=== PATIENT | male | born 1970 | race Caucasian/White ===

== ENCOUNTER 2016-06-13 08:12 | Day surgery (SDC) | payer OTHER ==
[~2016-06-13 08:12] MED LIST: DIPRIVAN 200 MG/20 ML IV ONE; Ketamine HCl 50 MG/ML IJ ONE
--- NOTE | 2016-06-13 08:18 | HP ---
The patient is a 45 year-old, had some bright blood bowel movements over the past 5 years, worse recently over the past few weeks. He had a colonoscopy for diarrhea 6 or 7 years ago, it was negative according to the patient. FAMILY HISTORY: An uncle with some sort of bowel cancer, whether it was colon or not, he is not sure. The patient denies any fever or any abdominal pain currently. He has a history of PE, DVT, in the past. History of staph infections in the past. He was on Xarelto but he held his Xarelto since he had the bleeding episode. PAST MEDICAL HISTORY: As mentioned above. MEDICATIONS: Xarelto, which he had held since the bleeding episode. Other history of being on Tylenol and Viagra in the past. Otherwise, he denied any chronic illnesses other than as noted above. PAST SURGICAL HISTORY: He had elbow surgery in the past. He had patellar tendon debridement and arthroscopy 07/03/2015. FAMILY HISTORY: Arthritis, diabetes. SOCIAL HISTORY: Half a pack a day smoker. Denies alcohol abuse. ALLERGIES: Amoxicillin. REVIEW OF SYSTEMS: Again, pertinent for he had a pulmonary embolus 3 weeks after his knee surgery back in June,. Otherwise, no chest pains or palpitations. Other symptoms negative or noncontributory as noted above per pre-admission questionnaire. PHYSICAL EXAMINATION: GENERAL: No acute distress. HEENT: Sclerae nonicteric. NECK: No JVD. CHEST: Normal excursions CARDIOVASCULAR: Regular rate and rhythm. ABDOMEN: Soft, nontender, nondistended. No peritoneal signs. EXTREMITIES: No significant edema. NEUROLOGICAL: Alert, moving extremities grossly symmetrically, no gross motor deficits noted. RECTAL: Deferred to time of endoscopy exam. Patient has had reported history of some question of some hemorrhoid issues in the past as well. IMPRESSION: Rectal bleeding. He has had a history of Xarelto use for PE and DVT in the past. Otherwise, at this time he has held. It was felt he would benefit from colonoscopy for evaluation, rule out other etiology. He is interested as he does have some hemorrhoid disease. If finding any other obvious etiology or if hemorrhoids seem to be the etiology, then consider possible internal hemorrhoid banding at the time of the procedure. Therefore, we will proceed with colonoscopy, possible internal hemorrhoid banding as an outpatient. The risks and benefits explained in detail, not limited to bleeding, infection, small risk of bowel injury or perforation possibly requiring other procedures, small risk of missed or non diagnosis or incomplete exam possibly requiring barium enema or other procedures. General risk of anesthesia or sedation, risk of bowel prep, postoperative nausea, vomiting or cramping, but not limited to. He also understands should his internal hemorrhoids be prominent enough to consider internal hemorrhoid banding, general risk of bleeding, infection, small risk of deep or pelvic infection possibly requiring major operation. General risk of anesthesia, DVT, PE, pneumonia. He also understands possibility, even with banding, he could have progression of hemorrhoid disease and might require other treatments and/or even excision down the road. General risk of aches and pains but not limited to. He understands and agrees with plan of procedure. We will proceed with colonoscopy, possible internal hemorrhoid banding as an outpatient.
[2016-06-13] MEDS ORDERED: Lactated Ringers 1,000 ML IV ONE ×2 (08:24→09:15)
[2016-06-13] MEDS ORDERED: Lactated Ringers 1,000 ML IV SCH (08:30)
[2016-06-13] MEDS ORDERED: ANUSOL-HC 2.5% CREAM 30 GM ONE (09:16)
[2016-06-13 12:05] VITALS: BP 134/68; PULSE 76; O2SAT 98
--- NOTE | 2016-06-14 08:37 | OP ---
SURGERY DATE/TIME: 06/13/2016 1020 PREOPERATIVE DIAGNOSES: 1) History of rectal bleeding. 2) Poor bowel prep limiting the exam. 3) Rectal mass at about 5 to 6 cm from anal verge. 4) Small rectosigmoid colon polyps versus hyperplastic lesions, small raised lesion ascending colon. 5) Diverticulosis. 6) Internal and external hemorrhoids. 7) Poor bowel prep limiting the exam. POSTOPERATIVE DIAGNOSES: 1) History of rectal bleeding. 2) Poor bowel prep limiting the exam. 3) Rectal mass at about 5 to 6 cm from anal verge. 4) Small rectosigmoid colon polyps versus hyperplastic lesions, small raised lesion ascending colon. 5) Diverticulosis. 6) Internal and external hemorrhoids. 7) Poor bowel prep limiting the exam. PROCEDURES: 1) Colonoscopy to terminal ileum with retrograde ileoscopy. 2) Retrograde ileoscopy. 3) Hot biopsy small raised lesion initially and then removed with the hot snare and brief bursts of cautery. 4) Hot snare polypectomy small rectosigmoid colon polyp x2. 5) Hot biopsy small raised lesion versus hyperplastic lesion versus early polyps rectosigmoid colon x2 or 3. 6) Hot snare biopsy of large 3 cm rectal polypoid mass at about 5 to 6 cm above the anal verge right at the lower fold, multiple large biopsies taken with hot snare with ink spot tattooing of the location. SURGEON: Dr. Andriy Heller. ANESTHESIA: MAC. ESTIMATED BLOOD LOSS: Minimal. INDICATIONS: As noted above. Risks and benefits explained in detail but not limited to and consent obtained. DESCRIPTION OF PROCEDURE AND FINDINGS: The patient is taken to the operating room. MAC anesthesia induced. After official time out and no disagreement with planned procedure, digital rectal exam revealed some internal and external hemorrhoids, tip of the polypoid lesion at the very tip of the finger. Video colonoscope inserted and passed up through the poorly prepped colon. Slowly and carefully the tortuous colon down the transverse colon, ascending colon to the cecum and up the terminal ileum. Retrograde ileoscopy is accomplished. The ileum was grossly unremarkable. The scope is withdrawn. Again the prep was poor limiting the exam for potentially small lesions. There is a small 3 mm raised lesion versus early polyp on a fold on the ascending colon this was initially planned to biopsy but it looked like it was easier to snare so it was removed with hot snare with brief bursts of cautery. Good hemostasis noted. The staff said the polyp/raised lesion was retrieved. The scope is slowly and carefully withdrawn through the poorly prepped colon. He did have some diverticulosis. The scope pulled back to the rectosigmoid colon where a couple small polyps removed with hot snare. Whether these were hyperplastic or adenomatous was unclear. They were removed with hot snare with brief bursts of cautery elevating well away from bowel wall. There were two to three other small raised lesions whether hyperplastic versus early true polyp removed with hot biopsy with brief bursts of cautery elevating well away from the bowel wall. About 5 to 6 cm up from the anal verge right at the lower fold it was noted a polypoid mass this had two broad of base to safely remove in toto with a snare. A couple large pieces were taken off with the snare and appeared to have some brief ooze but appeared to have adequate hemostasis. These were sent for biopsy. Otherwise spot was marked with a couple ink spot tattooing with some at distal edge with the ink spot tattoo. Otherwise he did have some internal and external hemorrhoids but banding was not accomplished on this visit as it was felt that his polypoid mass would need surgical intervention. Therefore any hemorrhoid banding was aborted at this juncture. The patient tolerated the procedure well. There were no immediate complications. Findings discussed with the family out in the waiting area. We will see him back in the office to go over the path next week and discuss options.
== END 2016-06-13 12:10 | disposition home or self-care (01) ==
LOC: SDC 08:12
PROVIDERS: ATTEND Surgery
PROC: 0DJD8ZZ Inspection of Lower Intestinal Tract, Via Natural or Artificial Opening Endoscopic (ICD-10-PCS; principal; 2016-06-13)
PROC: 0DJD8ZZ Inspection of Lower Intestinal Tract, Via Natural or Artificial Opening Endoscopic (ICD-10-PCS; 2016-06-13)
PROC: 0DBK8ZX Excision of Ascending Colon, Via Natural or Artificial Opening Endoscopic, Diagnostic (ICD-10-PCS; 2016-06-13)
PROC: 0DBP8ZX Excision of Rectum, Via Natural or Artificial Opening Endoscopic, Diagnostic (ICD-10-PCS; 2016-06-13)
PROC: 0DBN8ZX Excision of Sigmoid Colon, Via Natural or Artificial Opening Endoscopic, Diagnostic (ICD-10-PCS; 2016-06-13)
PROC: 3E0H8GC Introduction of Other Therapeutic Substance into Lower GI, Via Natural or Artificial Opening Endoscopic (ICD-10-PCS; 2016-06-13)
DX: K62.89 Other specified diseases of anus and rectum (principal); K62.1 Rectal polyp; K62.5 Hemorrhage of anus and rectum; K63.9 Disease of intestine, unspecified; K57.90 Diverticulosis of intestine, part unspecified, without perforation or abscess without bleeding; K64.4 Residual hemorrhoidal skin tags; K64.8 Other hemorrhoids
CPT/HCPCS: 00810; 36415; 88305; J2704

== ENCOUNTER 2016-06-20 09:09 | Inpatient (IN) | payer OTHER ==
[2016-08-08] MEDS ORDERED: DIPRIVAN 200 MG/20 ML IV ONE (08:00)
[2016-08-08] MEDS ORDERED: XYLOCAINE 2%/Epi 1:200000 20ML VIAL MPF IJ ONE (08:00)
[2016-08-08] MEDS ORDERED: SUBLIMAZE 100 MCG/2 ML IV ONE (08:00)
[2016-08-08] MEDS ORDERED: Decadron 4 MG INJ IV ONE (08:00)
[2016-08-08] MEDS ORDERED: BRIDION 200MG/2ML IV ONE (08:00)
[2016-08-08] MEDS ORDERED: BREVIBLOC 100 MG/10 ML IV ONE (08:00)
[2016-08-08] MEDS ORDERED: Zemuron 100 MG/10 ML IJ ONE (08:00)
[2016-08-08] MEDS ORDERED: DILAUDID 2 MG INJECTION IV ONE (08:00)
[2016-08-08] MEDS ORDERED: Quelicin Fliptop 200 MG/10 ML IV ONE (08:00)
[2016-08-08] MEDS ORDERED: PHENYLEPHRINE HCL IV ONE (08:00)
[2016-08-08] MEDS ORDERED: VERSED 5 MG/5 ML IV ONE (08:00)
[2016-08-08] MEDS ORDERED: Zofran 4 MG/2 ML VIAL IV ONE (08:00)
[2016-08-08] MEDS ORDERED: TORAdol 30 mg Injection IV ONE (08:00)
--- NOTE | 2016-08-08 08:21 | HP ---
DATE OF SURGERY: 08/08/2016 HISTORY OF PRESENT ILLNESS: The patient is a 45 year-old gentleman had rectal bleeding, had been on Xarelto in the past. He stopped taking it. He had a colonoscopy six or seven years ago negative according to the patient. He had blood in the bowel movements over the past five years. History of pulmonary embolism and deep venous thrombosis in the past. He had Staph infection in the past. He had been on Xarelto. MEDICATIONS: He had been on Xarelto but he had stopped it. ALLERGIES: AMOXICILLIN. PAST SURGICAL HISTORY: He had knee surgery in the past. He had pulmonary embolism three weeks after that surgery. FAMILY HISTORY: Uncle with some sort of bowel cancer whether colon or not is unknown. Arthritis and diabetes. SOCIAL HISTORY: One and a half pack per day smoker. He does drink some alcohol, denies abuse. REVIEW OF SYSTEMS: Twelve systems reviewed pertinent for history of pulmonary embolism in the past and deep venous thrombosis after a knee surgery. Otherwise he had a recent colonoscopy and had a very low rectal mass only 6 or 7 cm from the anal verge. 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 [place] it was too large to remove safely endoscopically. I felt that he would benefit from surgical resection. PHYSICAL EXAMINATION: GENERAL: No acute distress. HEENT: Sclerae nonicteric. NECK: No JVD. CHEST: Equal excursion, nonlabored breathing. CVS: Regular rate and rhythm. ABDOMEN: Soft, nontender. No peritoneal signs. EXTREMITIES: No significant edema. NEURO: Alert, oriented, moving extremities symmetrically. No gross motor deficits noted. RECTAL: Irregular tubulovillous adenoma. Again just barely can tip of it with a finger. 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 I feel he would benefit from surgical resection likely low anterior approach. He was explained that this is quite a low lesion and may not be that easy but plan on laparoscopic associated low anterior resection possibly open, possible hand-assist, possibly ostomy temporary or longer term. He was explained the risks and benefits explained in detail including but not limited to bleeding or infection, risk of wound complication, hernia, dehiscence,, risk of bowel, bladder, blood vessel of ureter or bladder issues or injury possibly requiring other procedures, risk of nerve, scar formation, or irritation, risk of bowel, bladder or even erectile dysfunction, general risk of anesthesia, deep venous thrombosis, pulmonary embolism, pneumonia, risk of ileus, risk of adhesions or obstruction, risk of anastomotic complications, leak or dehiscence possibly requiring ostomy, general risk of anesthesia, deep venous thrombosis, pulmonary embolism, pneumonia, perioperative risk of aches, pains, but not limited to. He also understands options of doing nothing likely this mass will continue to grow and if there is no carcinoma in it now likely will be in the near future. Otherwise general risk of aches and pains but not limited to. He understands this is quite low. There is possibility may be reanastomosis but might require temporary ileostomy or diversion ostomy. He understands all the above and agrees to the planned procedure and will proceed with laparoscopic assisted low anterior resection possible hand-assist, possible open, possible ostomy depending on operative findings.
[2016-08-08] MEDS: ENTEREG 12 MG PO SCH ×2 (10:26→21:54)
[2016-08-08] MEDS ORDERED: MEFOXIN 2 GM PREMIX** 50 ML IV ONE ×2 (10:29→10:49)
[2016-08-08] MEDS ORDERED: Lactated Ringers 1,000 ML IV SCH (10:30)
[2016-08-08] MEDS ORDERED: Versed 2 MG/2 ML Injection IV ONE (10:49)
[2016-08-08] MEDS ORDERED: Lactated Ringers 1,000 ML IV ONE ×4 (12:09→16:09)
[2016-08-08] MEDS ORDERED: Sensorcaine 0.25% 10 ML ONE (12:09)
[2016-08-08] MEDS ORDERED: EPIDURAL - ROPIVICAINE0.5%/SUFENTA 250 MCG/NS EPIDURAL PRN (16:24)
[2016-08-08] MEDS ORDERED: DILAUDID 1 MG/1ML PCA IV PRN (17:43)
[2016-08-08] MEDS ORDERED: Zofran 4 MG/2 ML VIAL IV PRN (17:44)
[2016-08-08] MEDS ORDERED: TYLENOL 325 MG PO PRN (17:46)
[2016-08-08] MEDS: D5W/0.45NS W/ 20mEq KCl 1000 ML 1,000 ML IV SCH (17:46)
[2016-08-08] MEDS ORDERED: NORCO 5/325 MG PO PRN (17:46)
[2016-08-08] MEDS ORDERED: Narcan 0.4 MG/ML IV PRN (17:48)
[2016-08-08] MEDS ORDERED: PERCOCET TABLET 5/325MG PO PRN (17:48)
[2016-08-08] MEDS ORDERED: CLARITIN 10 MG PO PRN (17:48)
[2016-08-08] MEDS ORDERED: NALBUPHINE HCL 10 MG/1 ML INJECTION IV PRN (17:48)
[2016-08-08] MEDS ORDERED: MORPHINE SULFATE 2 MG INJ IV PRN (17:48)
[2016-08-08] MEDS: MEFOXIN 1 Gm/ D5W 50 Ml** 50 ML IV SCH ×2 (18:05→23:50)
[2016-08-08] MEDS: Nicoderm CQ 21 MG TOP SCH (21:53)
[2016-08-09] MEDS: D5W/0.45NS W/ 20mEq KCl 1000 ML 1,000 ML IV SCH ×2 (03:59→14:52)
[2016-08-09] MEDS: MEFOXIN 1 Gm/ D5W 50 Ml** 50 ML IV SCH (05:47)
[2016-08-09 05:52] LABS: Mean Cell Volume 95.7 fl (78-100); Mean Corpuscular Hemoglobin 32.2 pg (26-32); Mean Platelet Volume 8.6 fl (6-9.5); Platelet Count 216 K/mm3 (150-450); Red Blood Count 3.97 M/mm3 (4.1-5.6); White Blood Count 13.1 K/mm3 (4.0-10.5)
[2016-08-09 06:01] LABS: ANION GAP 12.8 MEQ/L (5-15); BLOOD UREA NITROGEN 9 mg/dL (9-20); CHLORIDE 106 mEq/L (98-107); Carbon Dioxide 25.9 mEq/L (21-32); Glucose 128 MG/DL (70-110); Potassium 4.2 mEq/L (3.5-5.1); SODIUM 141 mEq/L (136-145)
--- NOTE | 2016-08-09 08:14 | OP ---
SURGERY DATE/TIME: 08/08/2016 1158 PREOPERATIVE DIAGNOSIS: Large polypoid mass tubulovillous adenoma by endoscopy biopsy not safely resectable endoscopically. POSTOPERATIVE DIAGNOSIS: Large polypoid mass tubulovillous adenoma by endoscopy biopsy not safely resectable endoscopically. PROCEDURES: 1) Laparoscopic assisted, hand assisted low anterior resection with primary reanastomosis. 2) Take down of splenic flexure. 3) Completion colonoscopy. SURGEON: Dr. Andriy Heller. ROCK DUST SPRAYER: Dr. Jaden Isaac. ANESTHESIA: General. ESTIMATED BLOOD LOSS: 75 to 100 cc. INDICATIONS: As noted above. Risks and benefits explained in detail but not limited to. He had a very low rectal polypoid mass that so far is tubulovillous adenoma by biopsy. There is no safe endoscopically resection. It was felt he was in need of low anterior resection. Risks and benefits explained in detail but not limited to, and consent obtained. He did not have any further questions preoperatively. He had been informed preoperatively that there is a remote chance of needing ostomy depending on how low this area was. Consent had been obtained. He also knew reanastomosis slightly higher risk of anastomotic complications but not limited to. Consent was obtained. DESCRIPTION OF PROCEDURE AND FINDINGS: The patient is taken to the operating room. General anesthesia was induced. Anesthesia applied by intrathecal. Abdomen prepped and draped in usual sterile fashion. After official time out and no disagreement with planned procedure, a low midline 7 cm incision was made. Dissection carried down. Hand port was placed. Epigastric 5 mm port was placed as well as left upper quadrant and left lower quadrant 5 mm ports. The abdomen insufflated. Careful inspection. Liver was unremarkable. He had a large amount of intra-abdominal fat. At this point the white line of [place] was incised with aide of cautery and dissection carried up to the splenic flexure. It was carefully taken down with a combination of the LigaSure and cautery retracting the splenic flexure downward this added additional length. Once this is accomplished white line of [place] extended down towards the pelvis area. At this point it was elected to go ahead and do some dissection through the hand port wound protector giving a tight, close space dissection. As this was not a cancer operation, this was tubulovillous adenoma, it was felt that it was more important to allow enough length to allow for reanastomosis rather than being concerned with taking additional lymph nodes at this time. Therefore rectum was transected with NAA stapler. Mesentery taken down, divided, ligated with a combination of clamps and Vicryl ties and LigaSure device. Left ureter is carefully protected out laterally as well as the right out laterally. Dissection is carried along the peritoneal reflection extending avascular plane posteriorly dissecting anterior staying just anterior to the rectum this took some time with a combination of Dr. Isaac providing better exposure slowly and carefully worked back and forth. Again, as this is not a cancer operation stayed in a little bit closer more distally to allow for better supply to the residual rectal stump. This took some time but again it was difficult narrow pelvis but was slowly and carefully accomplished. It was felt to be past the area in question. Once this was accomplished the contour stapler fired. Specimen is opened on the back table and appeared to be a good 3 cm distal to this polypoid mass/polyp. There appeared to be soft, viable colon distally. At this point the specimen confirmed. At this point it was elected to do end-to-end anastomosis to allow for enough length. Proximal limb was mobilized just a little bit more staying away from the visible ureter out laterally. Otherwise the stump was opened, pin was dropped in. I felt the size 29 dilator would be the most appropriate size as the rectum was a little smaller than proximal colon. It was then restapled with contour stapler and then the pin passed through just anterior to the staple line 3-0 PDS purse string was placed right at the stapler the anvil pin. Once this was accomplished the exposure was then accomplished down in the pelvis with the peritoneum and bladder flap anteriorly away from the area in question. The stapler was placed through there with a pin carefully, opened just anterior to the rectal stump staple line this was accomplished. The stapler was snapped together. It had good click. He had a large amount of fat on this large colon taking up more pelvic space but carefully retracting the peritoneum laterally away from the area in question. Stapler is slowly and carefully closed to the green zone and fired by Dr. Isaac. It was then carefully untwisted and removed. At this point the proximal colon was then pinched off and completion colonoscopy was accomplished by Dr. Isaac. There did not appear to be any evidence of any air leak at this time. Appeared to be a technically intact viable air tight anastomosis at this point. Appeared to be quite viable. There did not appear to be any issue passing an anvil in the proximal colon. It had some spasm earlier but appeared to be fine. The staple line appeared to be viable and intact. Technically excellent again tension free and good vascular supply and air tight. At this point the colon and rectum were decompressed and suctioned free and the scope removed. Copious amount of irrigation irrigating until clear. Irrigation was clear. JOBY drain placed down in the pelvis on either side without direct communication with anastomosis itself, placed to bulb suction. All sponge and instrument counts were correct. The fascia was closed with running looped 0 PDS sequentially with clean gloves and clean instruments. Subcu irrigated out. Skin stapled. As the bowel prep had been dirty elected to leave some Iodoform enriqueta 1/4 inch was left in the staple line to be gradually advanced out starting in a couple of days. Otherwise the port sites were stapled. The skin incision then stapled loosely with enriqueta placed in between to allow for any drainage. The patient was given sterile dressing and abdominal binder. The patient tolerated the procedure well. There were no immediate complications. Findings were discussed with the family out in the waiting area including this was like a perfect anastomosis and it was up to his body to heal this up. Continue bowel rest, IV hydration, and enteric protocol. They understood that as this was quite a low anastomosis that there was a risk of delayed or failure to heal but at this time anastomosis looked excellent. He was transferred to the recovery room in stable condition.
[2016-08-09] MEDS: ENTEREG 12 MG PO SCH ×2 (09:32→22:13)
[2016-08-09] MEDS ORDERED: PHARMACY DOSING REQUIRED: DILAUDID PCA IV ONE (12:49)
[2016-08-09] MEDS: ENOXAPARIN SODIUM SQ SCH (13:08)
[2016-08-09] MEDS: Nicoderm CQ 21 MG TOP SCH (22:12)
[2016-08-10] MEDS: D5W/0.45NS W/ 20mEq KCl 1000 ML 1,000 ML IV SCH ×3 (00:28→19:14)
[2016-08-10 05:55] LABS: Mean Cell Volume 96.4 fl (78-100); Mean Platelet Volume 8.7 fl (6-9.5); Platelet Count 210 K/mm3 (150-450); Red Blood Count 3.93 M/mm3 (4.1-5.6); White Blood Count 11.2 K/mm3 (4.0-10.5)
[2016-08-10 05:56] LABS: Mean Corpuscular Hemoglobin 32.5 pg (26-32)
[2016-08-10] MEDS: ENTEREG 12 MG PO SCH ×2 (09:34→21:22)
[2016-08-10] MEDS: ENOXAPARIN SODIUM SQ SCH (09:35)
[2016-08-10] MEDS: DILAUDID 1 MG/1ML PCA IV PRN (12:32)
--- NOTE | 2016-08-10 17:06 | PCM.HP ---
History of Present Illness - Chief Complaint Chief Complaint: post op laproscopic assistive colon resection History of Present Illness: is a 45 year old male who is currently 2 days post-op from a laparoscopic assisted partial colon resection, he was found to have a large tubulovillous adenoma too large to be removed endoscopically. The history if of intermittent rectal bleeding for the past year, he had a knee arthroscopy in June 2015 and approximately 3 weeks postoperatively developed a pulmonary embolism. He has been on xarelto since that time but had to stop it intermittently due to bleeding. He was advised at [facility] initially that 6 months of anticoagulation would be sufficient but for some reason it was continued by the patient beyond that time. - Review of Systems Constitutional: No Fever, No Chills Respiratory: No Cough, No Short Of Breath Cardiac: No Chest Pain, No Edema, No Syncope Abdominal/Gastrointestinal: Abdominal Pain, No Nausea, No Vomiting Skin: No Rash All Other Systems: Reviewed and Negative Medications & Allergies Home Medications: Home Medication List Rivaroxaban [Xarelto] 20 mg PO DAILY 06/13/16 [History Confirmed 08/08/16] Allergies/Adverse Reactions: Allergies Allergy/AdvReac Type Severity Reaction Status Date / Time amoxicillin AdvReac Rash Verified 08/08/16 10:40 - Past Medical History Past Medical History: Yes Neurological History: No Pertinent History ENT History: No Pertinent History Cardiac History: Deep Vein Thrombosis Respiratory History: No Pertinent History Endocrine Medical History: No Pertinent History Musculoskelatal History: Fractures GI Medical History: Other History: No Pertinent History Pyscho-Social History: No Pertinent History Male Reproductive Disorders: No Pertinent History Comment: pt had multipule pumonary emolisms at one time. non cancer colon mass - Past Surgical History Past Surgical History: Yes Neuro Surgical History: No Pertinent History Cardiac History: No Pertinent History Respiratory Surgery: No Pertinent History GI Surgical History: No Pertinent History Genitourinary Surgical Hx: No Pertinent History Musculskeletal Surgical Hx: Joint Replacement, Orthopedic Surgery Male Surgical History: No Pertinent History Other Surgical History: left knee arthroplasy, right knee arthroscopy, bilateral elbow tendons. (tennis elbow) - Social History Smoking Status: Current every day smoker How long have you smoked: 32 Exposure to second hand smoke: Yes Alcohol: Weekly Drug Use: none - Physical Exam Vital Signs: Vital Signs - 24 hr Temp Pulse Resp BP Pulse Ox 08/10/16 16:00 18 94 L 08/10/16 15:09 74 18 94 L 08/10/16 15:00 98.1 F 88 18 144/79 92 L 08/10/16 12:32 94 L 08/10/16 12:00 18 94 L 08/10/16 11:00 97.5 F 67 18 125/86 94 L 08/10/16 08:00 20 98 08/10/16 07:53 69 20 98 08/10/16 07:48 98.0 F 67 20 131/85 97 08/10/16 04:00 97.7 F 75 16 138/85 94 L 08/10/16 00:00 98.2 F 82 15 148/92 94 L 08/09/16 21:05 96 08/09/16 20:58 70 16 88 L 08/09/16 20:00 97.8 F 68 14 136/87 95 08/09/16 18:44 97 Oxygen-Last 24 hours O2 Percentage 2 Liters = 28% O2 Percentage 2 Liters = 28% O2 Percentage 2 Liters = 28% General Appearance: no apparent distress, alert Respiratory Exam: normal breath sounds, lungs clear, No respiratory distress Cardiovascular Exam: regular rate/rhythm, normal heart sounds, normal peripheral pulses Gastrointestinal/Abdomen Exam: soft, other (abd binder, dressings clean dry and intact), No mass Extremity Exam: normal inspection, normal range of motion, pelvis stable Skin Exam: normal color, warm, dry, No rash Results - Labs Lab/Micro Results: Lab Results-Last 24 Hours 08/10/16 Range/Units 05:49 WBC 11.2 H (4.0-10.5) K/mm3 RBC 3.93 L (4.1-5.6) M/mm3 Hgb 12.8 (12.5-18.0) gm/dl Hct 37.9 L (42-50) % MCV 96.4 (78-100) fl MCH 32.5 H (26-32) pg MCHC 33.8 (32-36) g/dl RDW 12.0 (11.5-14.0) % Plt Count 210 (150-450) K/mm3 MPV 8.7 (6-9.5) fl Microbiology 08/08/16 16:10 Urine Culture - Final Catherized NO GROWTH Assessment/Plan (1) Tubulovillous adenoma of rectum Current Visit: Yes Status: Acute Assessment & Plan: path is pending from surgery 2 days ago. post-op care per surgery. Code(s): D12.8 - BENIGN NEOPLASM OF RECTUM (2) S/P colon resection Current Visit: Yes Status: Acute Assessment & Plan: on entereg, only getting ice chips at this time. Code(s): Z90.49 - ACQUIRED ABSENCE OF OTHER SPECIFIED PARTS OF DIGESTIVE TRACT (3) Pulmonary embolism Current Visit: Yes Status: Acute Assessment & Plan: patient has TEDs and SCDs and is on prophylactic lovenox at this time. since his PE was more than a year ago and he was in the postoperative period I feel as though standard prophylaxis with Lovenox is sufficient, will resume xarelto when he is taking po to prevent recurrence of PE or DVT. Code(s): I26.99 - OTHER PULMONARY EMBOLISM WITHOUT ACUTE COR PULMONALE
[2016-08-10] MEDS: Nicoderm CQ 21 MG TOP SCH (21:20)
[2016-08-11] MEDS: D5W/0.45NS W/ 20mEq KCl 1000 ML 1,000 ML IV SCH ×2 (04:10→14:14)
[2016-08-11] MEDS: MORPHINE SULFATE 4 MG INJ IV PRN ×3 (05:10→08:59)
--- NOTE | 2016-08-11 08:25 | PCM.NOTE ---
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 he is passing some flatus. pain is controlled Objective Exam General Appearance: no apparent distress Respiratory Exam: normal breath sounds, lungs clear, No respiratory distress Cardiovascular Exam: regular rate/rhythm, normal heart sounds Gastrointestinal/Abdomen Exam: soft, other (dressing c/d/i), No distention Extremity Exam: normal inspection, normal range of motion OBJECTIVE DATA Vital Signs: Vital Signs - 24 hr Temp Pulse Resp BP Pulse Ox 08/11/16 07:00 98.5 F 69 20 149/86 96 08/11/16 05:00 96 08/11/16 03:00 97.6 F 78 15 171/95 96 08/11/16 01:00 94 L 08/11/16 00:00 16 08/10/16 23:00 98.7 F 76 13 149/87 94 L 08/10/16 21:00 94 L 08/10/16 20:00 16 08/10/16 19:10 64 16 93 L 08/10/16 19:00 98.4 F 68 14 131/84 96 08/10/16 17:14 94 L 08/10/16 16:32 96 08/10/16 16:00 18 94 L 08/10/16 15:09 74 18 94 L 08/10/16 15:00 98.1 F 88 18 144/79 92 L 08/10/16 12:32 94 L 08/10/16 12:00 18 94 L 08/10/16 11:00 97.5 F 67 18 125/86 94 L Pain Assessment - Last Documented Pain Intensity 4 Pain Scale Used 0-10 Pain Scale Intake and Output: Intake & Output 08/08/16 08/09/16 08/10/16 08/11/16 11:59 11:59 11:59 11:59 Intake Total 6538 2498 1561 Output Total 3700 2300 2540 Balance 1138 198 -979 Weight 87.543 kg 87.543 kg Assessment/Plan (1) Tubulovillous adenoma of rectum Current Visit: Yes Status: Acute Code(s): D12.8 - BENIGN NEOPLASM OF RECTUM (2) S/P colon resection Current Visit: Yes Status: Acute Assessment & Plan: doing well, diet will be advanced per surgery Code(s): Z90.49 - ACQUIRED ABSENCE OF OTHER SPECIFIED PARTS OF DIGESTIVE TRACT (3) Pulmonary embolism Current Visit: Yes Status: Acute Assessment & Plan: will resume xarelto 20mg daily today and d/c the lovenox. patient tolerating sips of liquid with po meds and ice chips. Code(s): I26.99 - OTHER PULMONARY EMBOLISM WITHOUT ACUTE COR PULMONALE
[2016-08-11] MEDS: ENTEREG 12 MG PO SCH ×2 (09:08→22:54)
[2016-08-11] MEDS: XARELTO 10 MG TABLET PO SCH (09:08)
[2016-08-11] MEDS: Morphine PCA 1 MG/ML 30 ML IV PRN (09:37)
[2016-08-11] MEDS: DILAUDID 1 MG/1ML PCA IV PRN (09:45)
[2016-08-11] MEDS: Nicoderm CQ 21 MG TOP SCH (22:54)
[2016-08-12] MEDS: D5W/0.45NS W/ 20mEq KCl 1000 ML 1,000 ML IV SCH ×3 (00:42→20:10)
[2016-08-12] MEDS: Morphine PCA 1 MG/ML 30 ML IV PRN ×2 (04:40→23:07)
[2016-08-12 05:45] LABS: BASOPHIL % 0.2 % (0.0-0.4); Eosinophil % 2.9 % (0.00-5.0); Granulocytes % 65.7 % (36.0-66.0); Lymphocytes % 18.4 % (24.0-44.0); Mean Cell Volume 93.9 fl (78-100); Mean Corpuscular Hemoglobin 32.3 pg (26-32); Mean Platelet Volume 8.7 fl (6-9.5); Monocytes % 12.8 % (0.0-12.0); Platelet Count 257 K/mm3 (150-450); Red Blood Count 4.73 M/mm3 (4.1-5.6); Red Cell Distribution Width 12.1 % (11.5-14.0); White Blood Count 9.7 K/mm3 (4.0-10.5)
[2016-08-12 06:09] LABS: ALBUMIN 3.2 g/dL (3.4-5.0); ALKALINE PHOSPHATASE 42 U/L (46-116); ANION GAP 14.4 MEQ/L (5-15); BLOOD UREA NITROGEN 5 mg/dL (9-20); CHLORIDE 102 mEq/L (98-107); Carbon Dioxide 25.5 mEq/L (21-32); Glucose 117 MG/DL (70-110); MAGNESIUM 1.7 mg/dL (1.8-2.4); Potassium 3.8 mEq/L (3.5-5.1); SGOT/AST 19 U/L (15-37); SGPT/ALT 27 U/L (12-78); SODIUM 138 mEq/L (136-145)
--- NOTE | 2016-08-12 08:35 | PCM.NOTE ---
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 tolerating some clear liquids. Objective Exam General Appearance: no apparent distress, alert Skin Exam: normal color, warm, dry Respiratory Exam: normal breath sounds, lungs clear, No respiratory distress Cardiovascular Exam: regular rate/rhythm, normal heart sounds Gastrointestinal/Abdomen Exam: soft, other (dressing c/d/i) Extremity Exam: normal inspection, normal range of motion OBJECTIVE DATA Vital Signs: Vital Signs - 24 hr Temp Pulse Resp BP Pulse Ox 08/12/16 07:36 87 18 93 L 08/12/16 07:11 97.6 F 96 H 18 126/85 93 L 08/12/16 04:40 94 L 08/12/16 04:00 15 08/12/16 03:00 98.4 F 85 15 131/79 92 L 08/12/16 00:00 15 08/11/16 23:00 98.5 F 87 15 136/84 94 L 08/11/16 20:58 96 08/11/16 20:56 93 H 16 96 08/11/16 20:00 18 08/11/16 19:00 98.7 F 73 14 160/95 93 L 08/11/16 17:37 95 08/11/16 15:00 99.0 F 83 19 141/90 92 L 08/11/16 11:00 98.6 F 78 19 158/96 95 08/11/16 09:45 96 08/11/16 09:37 97 08/11/16 08:51 95 Pain Assessment - Last Documented Pain Intensity 5 Pain Scale Used 0-10 Pain Scale Intake and Output: Intake & Output 08/09/16 08/10/16 08/11/16 08/12/16 11:59 11:59 11:59 11:59 Intake Total 4838 2498 1561 3246 Output Total 3700 2300 2540 2250 Balance 1138 198 -979 996 Weight 87.543 kg 87.543 kg Lab Results: Lab Results-Last 24 Hours 08/12/16 08/12/16 Range/Units 05:39 05:39 WBC 9.7 (4.0-10.5) K/mm3 RBC 4.73 (4.1-5.6) M/mm3 Hgb 15.3 (12.5-18.0) gm/dl Hct 44.4 (42-50) % MCV 93.9 (78-100) fl MCH 32.3 H (26-32) pg MCHC 34.5 (32-36) g/dl RDW 12.1 (11.5-14.0) % Plt Count 257 (150-450) K/mm3 MPV 8.7 (6-9.5) fl Gran % 65.7 (36.0-66.0) % Lymphocytes % 18.4 L (24.0-44.0) % Monocytes % 12.8 H (0.0-12.0) % Eosinophils % 2.9 (0.00-5.0) % Basophils % 0.2 (0.0-0.4) % Basophils # 0.02 (0-0.4) Sodium 138 (136-145) mEq/L Potassium 3.8 (3.5-5.1) mEq/L Chloride 102 (98-107) mEq/L Carbon Dioxide 25.5 (21-32) mEq/L Anion Gap 14.4 (5-15) MEQ/L BUN 5 L (9-20) mg/dL Creatinine 0.99 (0.55-1.30) mg/dl Estimated GFR > 60 ML/MIN Glucose 117 H (70-110) MG/DL Calcium 9.1 (8.5-10.1) mg/dL Magnesium 1.7 L (1.8-2.4) mg/dL Total Bilirubin 1.0 (0.2-1.0) mg/dL AST 19 (15-37) U/L ALT 27 (12-78) U/L Alkaline Phosphatase 42 L (46-116) U/L Serum Total Protein 7.0 (6.4-8.2) gm/dL Albumin 3.2 L (3.4-5.0) g/dL Multi-Disciplinary Progress Notes: Multi-Disciplinary Progress Notes 08/11/16 09:00 (created 08/11/16 11:37) Case Management Note by Shyla Sommer DISCHARGE PLAN REVIEWED. PLEASANT AND TALKATIVE. CONTINUES TO PLAN TO RETURN HOME TO PRE EPISODIC LEVEL OF FNX. INDEPENDENT WITH ALL ADL'S. SIGNIFICANT OTHER IS A NURSE AND CAN ASSIST ON DISCHARGE IF NEEDED. WILL CONTINUE TO FOLLOW AND ASSESS FOR ALL DC NEEDS. Initialized on 08/11/16 11:37 - END OF NOTE Assessment/Plan (1) Tubulovillous adenoma of rectum Current Visit: Yes Status: Acute Code(s): D12.8 - BENIGN NEOPLASM OF RECTUM (2) S/P colon resection Current Visit: Yes Status: Acute Assessment & Plan: tolerating clear liquids at this time Code(s): Z90.49 - ACQUIRED ABSENCE OF OTHER SPECIFIED PARTS OF DIGESTIVE TRACT (3) Pulmonary embolism Current Visit: Yes Status: Acute Assessment & Plan: on xarelto, labs look great. no changes. Code(s): I26.99 - OTHER PULMONARY EMBOLISM WITHOUT ACUTE COR PULMONALE
[2016-08-12] MEDS: ENTEREG 12 MG PO SCH (09:55)
[2016-08-12] MEDS: XARELTO 10 MG TABLET PO SCH (09:55)
[2016-08-12 21:22] LABS: Mean Cell Volume 93.2 fl (78-100); Mean Corpuscular Hemoglobin 33.2 pg (26-32); Mean Platelet Volume 8.6 fl (6-9.5); Platelet Count 279 K/mm3 (150-450); Red Blood Count 4.73 M/mm3 (4.1-5.6); Red Cell Distribution Width 12.2 % (11.5-14.0); White Blood Count 18.8 K/mm3 (4.0-10.5)
[2016-08-12 21:38] LABS: ANION GAP 17.9 MEQ/L (5-15); BLOOD UREA NITROGEN 6 mg/dL (9-20); CHLORIDE 100 mEq/L (98-107); Carbon Dioxide 22.1 mEq/L (21-32); Glucose 161 MG/DL (70-110); SODIUM 136 mEq/L (136-145)
[2016-08-12] MEDS: Nicoderm CQ 21 MG TOP SCH (21:43)
[2016-08-12] MEDS ORDERED: MORPHINE SULFATE 4 MG INJ ONE (21:57)
[2016-08-12] MEDS: MORPHINE SULFATE 4 MG INJ IV PRN (21:59)
[2016-08-12] MEDS ORDERED: PHARMACY DOSING REQUIRED: MORPHINE PCA MC ONE (22:15)
[2016-08-12] MEDS ORDERED: MORPHINE SULFATE 2 MG INJ IV ONE (23:53)
[2016-08-12] MEDS ORDERED: Morphine PCA 1 MG/ML 30 ML IV PRN (23:54)
[2016-08-13] MEDS ORDERED: Ativan 2 MG/1 ML VIAL IV PRN (00:18)
[2016-08-13] MEDS ORDERED: MERREM 500MG IV ONE (00:25)
[2016-08-13] MEDS ORDERED: Sodium Chloride 0.9% 100 ML IVPB 100 ML IV ONE (00:28)
[2016-08-13] MEDS: MERREM 500MG 500 MG in Sodium Chloride 100ML MINI-BAG PLUS 100 ML IV SCH ×2 (00:47→07:43)
[2016-08-13] MEDS ORDERED: ENOXAPARIN SODIUM SQ SCH ×3 (03:00→10:00)
[2016-08-13] MEDS: Morphine PCA 1 MG/ML 30 ML IV PRN ×3 (04:00→22:54)
[2016-08-13 05:34] LABS: Mean Cell Volume 94.1 fl (78-100); Mean Corpuscular Hemoglobin 32.8 pg (26-32); Mean Platelet Volume 8.7 fl (6-9.5); Platelet Count 297 K/mm3 (150-450); Red Cell Distribution Width 12.3 % (11.5-14.0); White Blood Count 16.7 K/mm3 (4.0-10.5)
[2016-08-13 05:48] LABS: ANION GAP 11.9 MEQ/L (5-15); BLOOD UREA NITROGEN 7 mg/dL (9-20); CHLORIDE 99 mEq/L (98-107); Carbon Dioxide 29.8 mEq/L (21-32); Glucose 142 MG/DL (70-110); Potassium 4.4 mEq/L (3.5-5.1); SODIUM 136 mEq/L (136-145)
[2016-08-13] MEDS: D5W/0.45NS W/ 20mEq KCl 1000 ML 1,000 ML IV SCH (07:43)
[2016-08-13] MEDS ORDERED: Morphine PCA 1 MG/ML 30 ML IV PRN (07:54)
[2016-08-13] MEDS ORDERED: Decadron 4 MG INJ IV ONE (08:00)
[2016-08-13] MEDS ORDERED: SUBLIMAZE 100 MCG/2 ML IV ONE (08:00)
[2016-08-13] MEDS ORDERED: DILAUDID 2 MG INJECTION IV ONE (08:00)
[2016-08-13] MEDS ORDERED: LOPRESSOR 5 MG/5 ML INJECTION IV ONE (08:00)
[2016-08-13] MEDS ORDERED: Lasix 20 MG/2 ML IV ONE (08:00)
[2016-08-13] MEDS ORDERED: Ephedrine Sulfate 50 MG/ML IV ONE (08:00)
[2016-08-13] MEDS ORDERED: TORAdol 30 mg Injection IV ONE (08:00)
[2016-08-13] MEDS ORDERED: Zemuron 100 MG/10 ML IV ONE (08:00)
[2016-08-13] MEDS ORDERED: Quelicin Fliptop 200 MG/10 ML IV ONE (08:00)
[2016-08-13] MEDS ORDERED: DIPRIVAN 200 MG/20 ML IV ONE (08:00)
[2016-08-13] MEDS ORDERED: BRIDION 200MG/2ML IV ONE (08:00)
[2016-08-13] MEDS ORDERED: Zofran 4 MG/2 ML VIAL IV ONE (08:00)
--- NOTE | 2016-08-13 08:28 | XRAY ---
Indication: Short of breath. Status post colon resection. Multiple contiguous axial images obtained through the chest using 100 cc Isovue-370 contrast and PE protocol. Comparison: None There is suboptimal opacification of the pulmonary arteries limiting evaluation of the lobar and segmental branches. No large central pulmonary embolus. Heart is not enlarged. Aorta normal in course and caliber. 2.4 cm right hilar lymph node. No other pathologic mediastinal/hilar lymphadenopathy. NG tube traverses the chest with the tip in the stomach lumen. Examination of the lung parenchyma demonstrates moderate bibasilar dependent atelectasis/scarring. Remaining lungs clear. Bony thorax intact with minimal degenerative changes throughout the spine. CT abdomen reported separately. Impression: 1. Suboptimal pulmonary artery opacification for unknown reason. No large central pulmonary bullous. 2. Bibasilar atelectasis/scarring. No acute cardiopulmonary abnormalities. 3. 2.4 cm right hilar lymph node. 4. NG tube tip in the stomach lumen. Comment: Preliminary interpretation was made by C. No discrepancy. CTDI 23.69
[2016-08-13] MEDS ORDERED: Narcan 0.4 MG/ML IV PRN (08:30)
--- NOTE | 2016-08-13 08:38 | XRAY ---
Indication: Abdomen pain. Postop colon resection. Concern for anastomotic leak. Multiple contiguous axial images obtained through the abdomen and pelvis using 100 cc Isovue-370 contrast only. Comparison: None CT chest reported separately. There has been sigmoid resection with surgical drainage tubing in situ. Adjacent free fluid and scattered tiny free air bubbles concerning for anastomotic leak. No walled off fluid collection. NG tube tip terminates in the stomach lumen. Noncontrasted bowel loops are moderately fluid distended with synchronous fluid leveling favoring ileus. Mild sigmoid diverticulosis. Hepatic/splenic calcified granulomas. Remaining liver, gallbladder, pancreas, spleen, adrenal glands, kidneys, ureters, and bladder appear unremarkable. Mild aortoiliac calcifications. No AAA or pathological retroperitoneal lymphadenopathy. Osseous structures intact with mild degenerative changes throughout the spine, bilateral L5 spondylolysis, and minimal 3-4 mm spondylolisthesis. Impression: 1. Status post sigmoid resection with adjacent free fluid and air bubbles worrisome for anastomotic leak. No walled off fluid collection. Surgical drainage tubing in situ. 2. Postoperative ileus with NG tube in situ. 3. Incidental sigmoid diverticulosis, evidence for old granulomatous disease, and bilateral L5 spondylolysis with minimal spondylolisthesis. Comment: Preliminary interpretation was made by [facility]. No discrepancy. CTDI 19.90
--- NOTE | 2016-08-13 08:40 | XRAY ---
Indication: Abdominal pain. Comparison: None 2 views of the abdomen demonstrates pelvic postsurgical changes with surgical drainage tubing in situ and diffuse air distended bowel loops with fluid leveling favor postoperative ileus. NG tube tip terminates in the stomach. No focal bowel dilatation or free air. Solid organs unremarkable. Osseous structures intact with mild degenerative changes. Lung bases clear. Impression: Postoperative ileus with NG tube and pelvic surgical drainage tubing in situ.
[2016-08-13 08:41] LABS: BAND 2 % (0.0-2.0); Total Cells Counted 100; Toxic Granulation 1+
[2016-08-13] MEDS ORDERED: MORPHINE SULFATE 2 MG INJ IV PRN ×2 (08:41→16:29)
[2016-08-13 08:42] LABS: Platelet Estimate NORMAL (NORMAL)
[2016-08-13] MEDS ORDERED: MEFOXIN 2 GM PREMIX** 50 ML IV SCH (10:20)
[2016-08-13] MEDS ORDERED: Pepcid 20 MG VIAL IV SCH (10:30)
[2016-08-13] MEDS ORDERED: Lactated Ringers 1,000 ML IV SCH (10:30)
[2016-08-13] MEDS ORDERED: Lactated Ringers 1,000 ML IV ONE (10:46)
[2016-08-13] MEDS ORDERED: Sensorcaine 0.25% 10 ML ONE (11:11)
[2016-08-13] MEDS ORDERED: Lactated Ringers 2,000 ML IV ONE (12:53)
[2016-08-13] MEDS ORDERED: DILAUDID 2 MG INJECTION ONE (14:57)
--- NOTE | 2016-08-13 15:41 | PROG NOTE ---
HISTORY OF PRESENT ILLNESS: The patient is a 45 year-old gentleman, had a very low endoscopically unresectable polypoid mass in his lower rectum. He underwent laparoscopic assisted and port assisted low anterior resection by myself and Dr. Isaac 5 days earlier. He had been passing some flatus and had been started on some liquids. During the day yesterday he had clear serous drainage from his JOBY. He had history of PE in the past and had been restarted on his Xarelto which he got yesterday morning. All of a sudden yesterday evening, at 9 or 10 o'clock at night when Dr. Sulma Isaac was rounding on the patient, noted to have some greenish tinge output of the right JOBY. It should be noted the left JOBY remained clear of serous. He had some brief dyspnea. She made him NPO, placed an NG, started him on some IV antibiotics, ordered a CT scan of the abdomen and pelvis which showed a few small bubbles down in the pelvis. No mass or free air. No large collections, as well as an ileus of the proximal bowel, but decompressed descending and sigmoid colon. This was concerning that he had a leak. As he was nontoxic she did not feel he needed to be operated on that evening. His white count was 18.8, it was actually 16.7 this morning. His lactic acid was normal this morning. He had some persistent green-tinged drainage out of his drain. He was afebrile, vital signs stable. Re-evaluated the patient this morning, does not seem to be dramatically improved. Options were discussed at length with the patient. Abdomen was soft. He did have some distension consistent with his ileus. His incisions were okay. His left JOBY, which was down in the lower pelvis, had remained serosanguinous, mostly serous, no evidence of any bilious output. The right JOBY was clearer than is was last night, but still had some slight bilious tinge drainage. It was felt he had some sort of anastomotic leak. Discussion with my partners, Dr. Jaden Isaac and Dr. Sulma Isaac, it was felt the best option would be to wash things out, possibly place more drainage. Between the 3 of us, agreed this would probably be the best option at this point and hopefully placing a diverting ileostomy if no evidence of any large disruption and anastomosis in an effort to hopefully save this difficult [place] anastomosis as taking it apart would make it much more difficult to re-anastomose down the road. This was discussed at length with the patient. He agrees to the plan, understanding even with wash-out, we could try laparoscopically with ileostomy placement but may need to convert to more of an open procedure, and even with the diverting ostomy if he failed to improve over time there is possibility he might still need his anastomosis completely taken down and colon brought up to the skin as a colostomy. He understands all this as well as risks of ongoing infection, sepsis, and/or abscesses of ileus or obstruction, risk of bowel, bladder, blood vessel or ureter issues or injury, risk of anesthesia, DVT, PE, pneumonia, risk of cardiopulmonary event, ongoing risk of aches and pains as well as risk of any ostomy complications, risk of ostomy necrosis, retraction, parastomal hernia, and/or obstruction but not limited to. He understands all the above. We had a long discussion of the above risks but not limited to, as well as risk of renal insufficiency, pneumonia, DVT, PE, and anesthesia as well as risk of any line placement, pneumothorax, thrombosis, arterial or vascular issues or injury. He understood all the above, prefers to go ahead and proceed with surgery at this time. PLAN: Diagnostic laparoscopy, laparoscopic lavage and washout of the abdomen, probable diverting ileostomy, possible open laparotomy and possible ostomy takedown with colostomy, as well as possible central line placement. He understands, even with this procedure, he failed to not improve he may need additional procedures in the future. He understands all of the above, not limited to, and agrees to the plan.
[2016-08-13] MEDS ORDERED: NORCO 5/325 MG PO PRN (16:13)
[2016-08-13] MEDS: Merrem 1 GM 1 G in Sodium Chloride 100ML MINI-BAG PLUS 100 ML IV SCH ×2 (16:48→21:31)
--- NOTE | 2016-08-13 16:57 | OP ---
DATE OF PROCEDURE: 08/13/2016 TIME OF PROCEDURE: 1130 PREOPERATIVE DIAGNOSES: 1. Status post low anterior resection for large endoscopically unresectable polyp, pending. 2. Failure to heal anastomosis with an anastomotic leak. POSTOPERATIVE DIAGNOSES: 1. Status post low anterior resection for large endoscopically unresectable polyp, pending. 2. Failure to heal anastomosis with an anastomotic leak. 3. Localized peritonitis down in the pelvis and right lower quadrant. PROCEDURES: 1. Diagnostic laparoscopy converted to open laparotomy with extensive lavage of the abdomen and pelvis. Decompression of the small bowel fluid-filled ileus. 2. End ileostomy, diverting ileostomy. SURGEON: Dr. Andriy Heller. ANESTHESIA: Andriy Parks CRNA, ANESTHESIA: General. DERMATOLOGY SALES REPRESENTATIVE: Otherwise, no assistants. ESTIMATED BLOOD LOSS: Minimal. INDICATIONS: As noted above. The risks and benefits explained in detail, but not limited to. Details as per progress note postoperatively. It was felt he had an anastomotic leak. There was no large free air. There was no large collection. The staple line appeared intact on the CT scan. There was question whether he had a localized leak, as he had a very difficult anastomosis, felt completely down at this juncture, may be very difficult to try to re-anastomose at a later date. It was felt that with a shunt to try to salvage anastomosis with diverting ileostomy and lavage of the abdomen at this time. Consent was obtained but not limited to. The patient understands that if he failed to improve he might need complete takedown of ostomy at a later date. Consent had been obtained but not limited to. For details please see the other progress note for discussion with the patient. DESCRIPTION OF PROCEDURE AND FINDINGS: The patient was taken to the operating room. General anesthesia was induced. He was placed in the left lateral position. It was unsure whether we would need to do anything further down below, otherwise. After official time out, no disagreement in the planned procedure, prepped and draped in the usual sterile fashion, a stab incision made through his prior incision in the lower epigastrium. Fascia grasped, pulled up, Veress needle inserted, tested with saline, tested with saline, pneumoperitoneum accomplished, insufflating from an opening pressure of 15, 5 mm bladeless port placed without difficulty following lower midline 5 mm port, and a right 5 mm right mid abdomen port. The patient had some localized peritonitis and some fibrinous small bowel loops in the right lower quadrant down to the pelvis. The left abdomen appeared to be fairly clear, as well as the upper abdomen. He did have an ileus, fluid and gas-filled small bowel, with some gas-filled colon. There was some localized peritonitis in the right lower quadrant down in the pelvis, some fluid, otherwise, the left abdomen appeared to be fairly clean. Otherwise, cecum was visualized, difficult to see the entrance of the terminal ileum given the very distended gas fluid-filled small bowel loops. Copious irrigation, irrigating until clear, to the right gutter, right lower quadrant, down in the pelvis, irrigated as clear as possible. Given the bowel distention it was not safe to continue proceeding laparoscopically, it was elected to proceed with diverting ileostomy through the midline incision. The old incision sutures were cut, the incision was extended up towards the umbilical area a few cm as he had an original small incision from the end port wound protected from the original surgery. Copious irrigation, irrigating until clear. He had a very fatty distal colon, had been down in the pelvic anastomosis. From what could be visualized there was no major defect at this point. Copious irrigation irrigated behind this area. A new JOBY drain was advanced down in the posterior rectal space behind an anastomotic area. Copious irrigation, another JOBY drain placed more anterior in the lower pelvis and right lower quadrant area. The left JOBY was in good position, directed downward, along the left pelvis area. Otherwise, copious irrigation, irrigated until clear. A small amount of debris in the right lower quadrant small bowel loops, fiber was gently peeled off with the [place] forceps and passed off for culture. At this point a several cm, just proximal to the ileocecal valve to allow for enough bowel to re-anastomose to, the ileum was transected. Mesentery taken down with a combination of Ligasure device and some clamps and Vicryl ties. The distal end was quite viable. The proximal end, at this point a corner was cut out and using the NG tube this fluid-filled small bowel loop was decompressed to allow for closure of the abdomen. NG was placed a few feet proximally removing as much as much of the fluid-filled succus as possible a far as the NG would reach. We carefully removed and the stump of the valve was closed, once again, there was no significant spillage from this. Copious irrigation irrigating until clear. At this point the drains were in good position and sutured in the skin. The lower drain down in the retrorectal pelvic space and a more superior drain along the right abdomen was directed along the right lower quadrant towards the anterior pelvic area. Left drain was left in place in the left pelvic area. At this point space for the ostomy was identified over in the right lower quadrant. A small quarter/half-dollar size skin [place] was excised, dissection carried down to the level of the fascia, cruciate incision made, dissection carried down through the rectus muscle, down through the posterior rectus sheath allowing a couple small fingers to be passed through the area, the proximal end of the ileum was then carefully brought up and appeared to viable right below the the fascial level. This ostomy had a very half cm or so, as well as a little bit dusky, so this was discarded. The ileostomy was matured in a [place] fashion with 3-0 Vicryl closing along the seromuscular and deeper ileum. The ileum then nippled back on itself with interrupted 4-0 Vicryl. Good hemostasis was noted, appeared to have good blood supply and nice ooze prior to securing it down to the skin level and dermis below the epidermis. It appeared to be viable and tension free. It should be noted that NG had been in good position, the distal part of the stomach to maximize decompression on short term. It should be noted just prior to maturing this ostomy copious irrigation, irrigating until clear, the drains in good position, gloves had been concerned, fascia was closed with clean instruments of running looped 0 PDS, sequentially SUBCU irrigated out, skin stapled, some Iodoform packing placed in between to allow for any drainage given his infection. The other port incision sites were also closed with benny. Ostomy was matured as mentioned earlier, and nipple fascia was quite viable and tension-free at this point. Drains had been secured, PDS suture, placed to bulb suction. The patient tolerated the procedure as well as possible, there was no immediate complications. Anesthesia is working on placing a central line for better IV access for IV antibiotics and treatments. Otherwise, findings were discussed with the patient's mother and stepfather out in the waiting area. They were apprised that we washed things out, we will try to salvage the anastomosis given the low location and extreme difficulty and re-anastomose at a later date, but if he failed to improve there is a possibility he still may need a complete anastomotic takedown, distal colon brought up to the skin. They understand.
[2016-08-13] MEDS: FLAGYL 500 MG IVPB 100 ML IV SCH (17:51)
--- NOTE | 2016-08-13 18:31 | XRAY ---
Indication: Central line placement. Comparison: None Portable chest underinflated with left base atelectasis/scarring. Remaining lungs clear. Right internal jugular central venous access catheter tip projects over the SVC without pneumothorax. NG tube traverses the chest with the tip in the stomach. Heart is not enlarged. Bony thorax intact. Impression: Status post right IJ central line insertion in good position without pneumothorax. NG tube tip in the stomach. Left base atelectasis/scarring.
[2016-08-13] MEDS: Nicoderm CQ 21 MG TOP SCH (21:29)
[2016-08-14] MEDS: FLAGYL 500 MG IVPB 100 ML IV SCH ×3 (01:24→16:30)
[2016-08-14] MEDS: D5W/0.45NS W/ 20mEq KCl 1000 ML 1,000 ML IV SCH ×3 (01:31→13:58)
[2016-08-14] MEDS: Morphine PCA 1 MG/ML 30 ML IV PRN (05:02)
[2016-08-14] MEDS: Merrem 1 GM 1 G in Sodium Chloride 100ML MINI-BAG PLUS 100 ML IV SCH ×3 (05:15→22:01)
[2016-08-14 05:53] LABS: Mean Corpuscular Hemoglobin 32.7 pg (26-32); Mean Platelet Volume 8.8 fl (6-9.5); Platelet Count 255 K/mm3 (150-450); Red Blood Count 4.22 M/mm3 (4.1-5.6); Red Cell Distribution Width 12.4 % (11.5-14.0); White Blood Count 16.4 K/mm3 (4.0-10.5)
[2016-08-14 07:39] LABS: ALBUMIN 2.1 g/dL (3.4-5.0); BLOOD UREA NITROGEN 15 mg/dL (9-20); CHLORIDE 100 mEq/L (98-107); Carbon Dioxide 28.7 mEq/L (21-32); Glucose 124 MG/DL (70-110); Potassium 4.2 mEq/L (3.5-5.1); SODIUM 135 mEq/L (136-145); Total Protein 5.3 gm/dL (6.4-8.2)
[2016-08-14 07:40] LABS: ALKALINE PHOSPHATASE 34 U/L (46-116); ANION GAP 10.5 MEQ/L (5-15); BILIRUBIN,TOTAL 1.1 mg/dL (0.2-1.0); SGOT/AST 17 U/L (15-37); SGPT/ALT 28 U/L (12-78)
[2016-08-14 09:04] LABS: Platelet Estimate NORMAL (NORMAL); Total Cells Counted 100; Toxic Granulation 1+
[2016-08-14] MEDS ORDERED: Marcaine Spinal Ampul IJ ONE (10:00)
[2016-08-14] MEDS ORDERED: Narcan 0.4 MG/ML IV PRN (10:42)
[2016-08-14] MEDS ORDERED: Sodium Chloride 0.9% 10 ML FLUSH Syringe IJ PRN (10:42)
[2016-08-14] MEDS ORDERED: Zofran 4 MG/2 ML VIAL IV PRN (10:42)
[2016-08-14] MEDS ORDERED: PERCOCET TABLET 5/325MG PO PRN (10:42)
[2016-08-14] MEDS ORDERED: NALBUPHINE HCL 10 MG/1 ML INJECTION IV PRN (10:42)
[2016-08-14] MEDS ORDERED: CLARITIN 10 MG PO PRN (10:42)
[2016-08-14] MEDS ORDERED: Ephedrine Sulfate 50 MG/ML IV PRN (10:48)
[2016-08-14] MEDS: Sodium Chloride 0.9% 10 ML FLUSH Syringe IJ SCH ×2 (13:47→22:02)
[2016-08-14 15:19] LABS: Collection Type VOID
[2016-08-14 15:20] LABS: COMPLETE URINE MICROSCOPIC? YES; Ph 5.5 (5-6)
[2016-08-14 15:39] LABS: Bacteria PACKED /HPF (NEGATIVE); Epithelial Cells FEW /HPF (FEW)
[2016-08-14] MEDS ORDERED: Sodium Chloride 0.9% 1000 ML 1,000 ML IV STA ×2 (16:48→17:00)
[2016-08-14 17:11] LABS: Mean Cell Volume 96.1 fl (78-100); Mean Corpuscular Hemoglobin 32.7 pg (26-32); Mean Platelet Volume 8.7 fl (6-9.5); Platelet Count 248 K/mm3 (150-450); Red Cell Distribution Width 12.4 % (11.5-14.0); White Blood Count 18.5 K/mm3 (4.0-10.5)
[2016-08-14] MEDS ORDERED: Sodium Chloride 0.9% 500 ML 500 ML IV ONE (17:20)
[2016-08-14] MEDS ORDERED: PROTONIX 40 MG IV IV ONE (17:20)
[2016-08-14 17:25] LABS: ANION GAP 8.1 MEQ/L (5-15); BLOOD UREA NITROGEN 20 mg/dL (9-20); CHLORIDE 99 mEq/L (98-107); Carbon Dioxide 32.8 mEq/L (21-32); Glucose 118 MG/DL (70-110); Potassium 4.3 mEq/L (3.5-5.1); SODIUM 136 mEq/L (136-145)
[2016-08-14] MEDS ORDERED: CHLORASEPTIC SPRAY 180 ML PO PRN (17:37)
[2016-08-14] MEDS ORDERED: PROTONIX 40 MG IV IV SCH (18:00)
[2016-08-14] MEDS: PROTONIX 40 MG IV*** 80 MG in Sodium Chloride 0.9% 500 ML 500 ML IV SCH (18:30)
[2016-08-14] MEDS: Nicoderm CQ 21 MG TOP SCH (22:01)
[2016-08-14] MEDS: MORPHINE SULFATE 2 MG INJ IV PRN (22:21)
[2016-08-15] MEDS: D5W/0.45NS W/ 20mEq KCl 1000 ML 1,000 ML IV SCH ×2 (00:42→12:35)
[2016-08-15] MEDS: FLAGYL 500 MG IVPB 100 ML IV SCH ×3 (00:42→17:15)
[2016-08-15] MEDS ORDERED: PROTONIX 40 MG IV IV ONE (03:50)
[2016-08-15] MEDS ORDERED: Sodium Chloride 0.9% 500 ML 500 ML IV ONE (03:50)
[2016-08-15] MEDS: PROTONIX 40 MG IV*** 80 MG in Sodium Chloride 0.9% 500 ML 500 ML IV SCH ×2 (04:45→15:13)
[2016-08-15] MEDS: Merrem 1 GM 1 G in Sodium Chloride 100ML MINI-BAG PLUS 100 ML IV SCH ×3 (05:10→21:54)
[2016-08-15] MEDS: Sodium Chloride 0.9% 10 ML FLUSH Syringe IJ SCH ×3 (05:11→21:54)
[2016-08-15 05:48] LABS: Mean Cell Volume 97.4 fl (78-100); Mean Corpuscular Hemoglobin 32.5 pg (26-32); Mean Platelet Volume 8.9 fl (6-9.5); Platelet Count 249 K/mm3 (150-450); Red Blood Count 3.78 M/mm3 (4.1-5.6); Red Cell Distribution Width 12.5 % (11.5-14.0); White Blood Count 15.5 K/mm3 (4.0-10.5)
[2016-08-15 06:05] LABS: INR 1.18 (0.8-3.0); PROTIME 13.2 SECONDS (8.83-12.87)
[2016-08-15 06:10] LABS: ALKALINE PHOSPHATASE 35 U/L (46-116); ANION GAP 11.9 MEQ/L (5-15); BILIRUBIN,TOTAL 0.7 mg/dL (0.2-1.0); BLOOD UREA NITROGEN 21 mg/dL (9-20); CHLORIDE 101 mEq/L (98-107); Carbon Dioxide 25.9 mEq/L (21-32); Glucose 140 MG/DL (70-110); Potassium 4.5 mEq/L (3.5-5.1); SGOT/AST 20 U/L (15-37); SGPT/ALT 17 U/L (12-78); SODIUM 134 mEq/L (136-145); Total Protein 5.7 gm/dL (6.4-8.2)
[2016-08-15] MEDS: EPIDURAL - ROPIVICAINE0.5%/SUFENTA 250 MCG/NS EPIDURAL PRN (07:55)
--- NOTE | 2016-08-15 08:10 | PCM.NOTE ---
Date and Time: 08/15/16806 Subjective Assessment: pain is currently controlled with epidural. patient is resting, NG in place to LIS, no complaints this am Objective Exam General Appearance: no apparent distress Respiratory Exam: normal breath sounds, lungs clear, No respiratory distress Cardiovascular Exam: regular rate/rhythm, normal heart sounds Gastrointestinal/Abdomen Exam: soft, other (ostomy pink and viable), No tenderness, No mass Extremity Exam: normal inspection, normal range of motion OBJECTIVE DATA Vital Signs: Vital Signs - 24 hr Temp Pulse Resp BP Pulse Ox 08/15/16 06:47 95 H 18 97 08/15/16 06:00 98 H 15 116/79 98 08/15/16 05:00 99.9 F 102 H 19 106/71 96 08/15/16 04:00 100 H 21 113/80 97 08/15/16 03:00 105 H 20 107/77 97 08/15/16 02:00 100.1 F 103 H 19 115/73 95 08/15/16 01:00 111 H 95 H 111/73 22 L 08/15/16 00:00 99.4 F 109 H 17 115/75 96 08/14/16 23:00 113 H 20 113/71 96 08/14/16 22:00 99.7 F 110 H 22 122/71 97 08/14/16 21:00 100.9 F 108 H 18 108/73 98 08/14/16 18:52 99 08/14/16 16:34 99.4 F 116 H 20 109/71 95 08/14/16 16:00 20 08/14/16 15:47 108 H 94 L 08/14/16 12:27 97.9 F 70 20 102/58 96 08/14/16 12:00 20 08/14/16 10:56 96 08/14/16 10:53 121 H 98/67 96 08/14/16 10:42 20 97/57 95 Oxygen-Last 24 hours O2 Percentage 2 Liters = 28% O2 Percentage 3 Liters = 32% O2 Percentage 3 Liters = 32% O2 Percentage 3 Liters = 32% O2 Percentage 3 Liters = 32% O2 Percentage 3 Liters = 32% O2 Percentage 3 Liters = 32% O2 Percentage 3 Liters = 32% O2 Percentage 3 Liters = 32% O2 Percentage 3 Liters = 32% Pain Assessment - Last Documented Pain Intensity 10 Pain Scale Used 0-10 Pain Scale Intake and Output: Intake & Output 08/12/16 08/13/16 08/14/16 08/15/16 11:59 11:59 11:59 11:59 Intake Total 3246 2381 2091 2160 Output Total 2250 2170 1480 2308 Balance 996 211 611 -148 Weight 87.543 kg 87.543 kg Lab Results: Lab Results-Last 24 Hours 08/14/16 08/14/16 08/14/16 Range/Units 05:05 13:33 16:55 WBC 16.4 H 18.5 H (4.0-10.5) K/mm3 RBC 4.22 4.10 (4.1-5.6) M/mm3 Hgb 13.8 13.4 (12.5-18.0) gm/dl Hct 40.1 L 39.4 L (42-50) % MCV 95.0 96.1 (78-100) fl MCH 32.7 H 32.7 H (26-32) pg MCHC 34.4 34.0 (32-36) g/dl RDW 12.4 12.4 (11.5-14.0) % Plt Count 255 248 (150-450) K/mm3 MPV 8.8 8.7 (6-9.5) fl Segmented Neutrophils 80 H (36.-66.) % Lymphocytes (Manual) 13 L (24-44) % Monocytes (Manual) 7 (0.0-12.0) % Differential Comment NORMAL Toxic Granulation 1+ Platelet Estimate NORMAL (NORMAL) INR (0.8-3.0) Sodium (136-145) mEq/L Potassium (3.5-5.1) mEq/L Chloride (98-107) mEq/L Carbon Dioxide (21-32) mEq/L Anion Gap (5-15) MEQ/L BUN (9-20) mg/dL Creatinine (0.55-1.30) mg/dl Estimated GFR ML/MIN Glucose (70-110) MG/DL Calcium (8.5-10.1) mg/dL Total Bilirubin (0.2-1.0) mg/dL AST (15-37) U/L ALT (12-78) U/L Alkaline Phosphatase (46-116) U/L Serum Total Protein (6.4-8.2) gm/dL Albumin (3.4-5.0) g/dL Ur Collection Type VOID Urine Color RED (YELLOW) Urine Appearance VERY CLOUDY (CLEAR) Urine pH 5.5 (5-6) Ur Specific [place] >=1.030 (1.005-1.025) Urine Protein 100 (Negative) Urine Glucose (UA) NEGATIVE (NEGATIVE) mg/dL Urine Ketones TRACE (NEGATIVE) Urine Nitrite POSITIVE (NEGATIVE) Urine Bilirubin MODERATE (NEGATIVE) Urine Urobilinogen 0.2 (0-1) mg/dL Urine WBC (Auto) NEGATIVE (NEGATIVE) Urine RBC (Auto) LARGE (0-5) Sander/ul Urine Microscopic RBC 0-2 (0-2) /HPF Urine Microscopic WBC 5-10 (0-5) /HPF Ur Epithelial Cells FEW (FEW) /HPF Urine Bacteria PACKED (NEGATIVE) /HPF Specimen Received 08/14 1500 08/14/16 08/15/16 08/15/16 Range/Units 16:55 05:30 05:30 WBC 15.5 H (4.0-10.5) K/mm3 RBC 3.78 L (4.1-5.6) M/mm3 Hgb 12.3 L (12.5-18.0) gm/dl Hct 36.8 L (42-50) % MCV 97.4 (78-100) fl MCH 32.5 H (26-32) pg MCHC 33.4 (32-36) g/dl RDW 12.5 (11.5-14.0) % Plt Count 249 (150-450) K/mm3 MPV 8.9 (6-9.5) fl Segmented Neutrophils (36.-66.) % Lymphocytes (Manual) (24-44) % Monocytes (Manual) (0.0-12.0) % Differential Comment Toxic Granulation Platelet Estimate (NORMAL) INR (0.8-3.0) Sodium 136 134 L (136-145) mEq/L Potassium 4.3 4.5 (3.5-5.1) mEq/L Chloride 99 101 (98-107) mEq/L Carbon Dioxide 32.8 H 25.9 (21-32) mEq/L Anion Gap 8.1 11.9 (5-15) MEQ/L BUN 20 21 H (9-20) mg/dL Creatinine 1.18 0.98 (0.55-1.30) mg/dl Estimated GFR > 60 > 60 ML/MIN Glucose 118 H 140 H (70-110) MG/DL Calcium 8.0 L 8.2 L (8.5-10.1) mg/dL Total Bilirubin 0.7 (0.2-1.0) mg/dL AST 20 (15-37) U/L ALT 17 (12-78) U/L Alkaline Phosphatase 35 L (46-116) U/L Serum Total Protein 5.7 L (6.4-8.2) gm/dL Albumin 2.0 L (3.4-5.0) g/dL Ur Collection Type Urine Color (YELLOW) Urine Appearance (CLEAR) Urine pH (5-6) Ur Specific [place] (1.005-1.025) Urine Protein (Negative) Urine Glucose (UA) (NEGATIVE) mg/dL Urine Ketones (NEGATIVE) Urine Nitrite (NEGATIVE) Urine Bilirubin (NEGATIVE) Urine Urobilinogen (0-1) mg/dL Urine WBC (Auto) (NEGATIVE) Urine RBC (Auto) (0-5) Sander/ul Urine Microscopic RBC (0-2) /HPF Urine Microscopic WBC (0-5) /HPF Ur Epithelial Cells (FEW) /HPF Urine Bacteria (NEGATIVE) /HPF Specimen Received 08/15/16 Range/Units 05:30 WBC (4.0-10.5) K/mm3 RBC (4.1-5.6) M/mm3 Hgb (12.5-18.0) gm/dl Hct (42-50) % MCV (78-100) fl MCH (26-32) pg MCHC (32-36) g/dl RDW (11.5-14.0) % Plt Count (150-450) K/mm3 MPV (6-9.5) fl Segmented Neutrophils (36.-66.) % Lymphocytes (Manual) (24-44) % Monocytes (Manual) (0.0-12.0) % Differential Comment Toxic Granulation Platelet Estimate (NORMAL) INR 1.18 (0.8-3.0) Sodium (136-145) mEq/L Potassium (3.5-5.1) mEq/L Chloride (98-107) mEq/L Carbon Dioxide (21-32) mEq/L Anion Gap (5-15) MEQ/L BUN (9-20) mg/dL Creatinine (0.55-1.30) mg/dl Estimated GFR ML/MIN Glucose (70-110) MG/DL Calcium (8.5-10.1) mg/dL Total Bilirubin (0.2-1.0) mg/dL AST (15-37) U/L ALT (12-78) U/L Alkaline Phosphatase (46-116) U/L Serum Total Protein (6.4-8.2) gm/dL Albumin (3.4-5.0) g/dL Ur Collection Type Urine Color (YELLOW) Urine Appearance (CLEAR) Urine pH (5-6) Ur Specific [place] (1.005-1.025) Urine Protein (Negative) Urine Glucose (UA) (NEGATIVE) mg/dL Urine Ketones (NEGATIVE) Urine Nitrite (NEGATIVE) Urine Bilirubin (NEGATIVE) Urine Urobilinogen (0-1) mg/dL Urine WBC (Auto) (NEGATIVE) Urine RBC (Auto) (0-5) Sander/ul Urine Microscopic RBC (0-2) /HPF Urine Microscopic WBC (0-5) /HPF Ur Epithelial Cells (FEW) /HPF Urine Bacteria (NEGATIVE) /HPF Specimen Received Radiology Exams: Radiology Procedures Category Date Time Status ABDOMEN 2 VIEW Routine Exams 08/13/16 08:00 Completed Multi-Disciplinary Progress Notes: Multi-Disciplinary Progress Notes 08/14/16 10:18 Pharmacy Note by Rosales Martinez 08/14 1000 auto wrecker consult Continuous epidrual - sufenta + ropivacaine started per Andriy Parks auto wrecker off restart auto wrecker at standard protocol in 4 hours (1400) at 1 mg q10h 6 mg/hr total dose no basal rate continue Morphine 2 mg iv q1h prn breakthrough pain. All orders verified with Andriy baron Initialized on 08/14/16 10:18 - END OF NOTE Assessment/Plan (1) S/P colon resection Current Visit: Yes Status: Acute Code(s): Z90.49 - ACQUIRED ABSENCE OF OTHER SPECIFIED PARTS OF DIGESTIVE TRACT (2) Pulmonary embolism Current Visit: Yes Status: Acute Assessment & Plan: plan to restart on lovenox when ok with with surgery, since not taking anything po and JOBY in place Code(s): I26.99 - OTHER PULMONARY EMBOLISM WITHOUT ACUTE COR PULMONALE (3) Ileostomy present Current Visit: Yes Status: Acute Assessment & Plan: currently on meropenem and flagyl, will continue to monitor Code(s): Z93.2 - ILEOSTOMY STATUS
[2016-08-15] MEDS: Nicoderm CQ 21 MG TOP SCH (21:54)
[2016-08-16] MEDS: D5W/0.45NS W/ 20mEq KCl 1000 ML 1,000 ML IV SCH (00:34)
[2016-08-16] MEDS: PROTONIX 40 MG IV*** 80 MG in Sodium Chloride 0.9% 500 ML 500 ML IV SCH ×3 (01:09→21:45)
[2016-08-16] MEDS: FLAGYL 500 MG IVPB 100 ML IV SCH ×3 (01:15→18:02)
[2016-08-16] MEDS: EPIDURAL - ROPIVICAINE0.5%/SUFENTA 250 MCG/NS EPIDURAL PRN (05:19)
[2016-08-16] MEDS: Merrem 1 GM 1 G in Sodium Chloride 100ML MINI-BAG PLUS 100 ML IV SCH ×3 (05:55→22:54)
[2016-08-16] MEDS: Sodium Chloride 0.9% 10 ML FLUSH Syringe IJ SCH ×3 (05:55→22:54)
[2016-08-16 05:56] LABS: Mean Platelet Volume 8.6 fl (6-9.5); Platelet Count 262 K/mm3 (150-450); Red Blood Count 3.42 M/mm3 (4.1-5.6); Red Cell Distribution Width 12.4 % (11.5-14.0); White Blood Count 11.4 K/mm3 (4.0-10.5)
[2016-08-16 06:11] LABS: ALBUMIN 1.8 g/dL (3.4-5.0); ALKALINE PHOSPHATASE 27 U/L (46-116); BILIRUBIN,TOTAL 0.5 mg/dL (0.2-1.0); BLOOD UREA NITROGEN 19 mg/dL (9-20); CHLORIDE 104 mEq/L (98-107); Carbon Dioxide 26.1 mEq/L (21-32); Glucose 111 MG/DL (70-110); SGOT/AST 15 U/L (15-37); SGPT/ALT 14 U/L (12-78); SODIUM 137 mEq/L (136-145); Total Protein 5.1 gm/dL (6.4-8.2)
[2016-08-16 07:16] LABS: Eosinophil 5 % (0.00-3.0); Platelet Estimate NORMAL (NORMAL); Total Cells Counted 100
--- NOTE | 2016-08-16 07:35 | PCM.NOTE ---
Date and Time: 08/16/16729 Subjective Assessment: Pt with increasing abd pain since his epidural bag was changed at 5 am. Currently 10/24. Has occasional cough. Erasto ice chips without nausea. Has 600 cc green fluid in NG basin, unsure when emptied but RN thinks this is from all night. 100cc out of JOBY drains around 5 a.m. Pt states he would like to eat. - Review of Systems Constitutional: No Fever Respiratory: Cough Abdominal/Gastrointestinal: Abdominal Pain Objective Exam General Appearance: no apparent distress Neurologic Exam: alert, oriented x 3, cooperative Skin Exam: normal color, warm, dry Respiratory Exam: normal breath sounds, lungs clear, No crackles/rales, No rhonchi, No wheezing Cardiovascular Exam: regular rate/rhythm, normal heart sounds, No murmur Gastrointestinal/Abdomen Exam: soft, normal bowel sounds, other (binder and dressings in place; no erythema when superior edge of binder is displaced) Extremity Exam: No pedal edema, No swelling OBJECTIVE DATA Vital Signs: Vital Signs - 24 hr Temp Pulse Resp BP Pulse Ox 08/16/16 06:00 99.4 F 74 17 109/70 97 08/16/16 05:00 74 15 114/73 97 08/16/16 04:00 80 18 113/65 96 08/16/16 03:00 83 20 110/67 96 08/16/16 02:00 79 18 107/69 96 08/16/16 01:00 80 18 109/65 95 08/16/16 00:00 99.0 F 79 18 107/64 96 08/15/16 23:00 79 18 106/67 96 08/15/16 22:00 87 19 111/68 97 08/15/16 21:00 99.0 F 85 18 105/61 96 08/15/16 20:00 87 20 108/60 98 08/15/16 19:00 90 19 102/62 97 08/15/16 18:48 98 08/15/16 18:00 84 21 112/69 97 08/15/16 17:00 94 H 19 114/64 97 08/15/16 16:00 99.9 F 99 H 20 116/72 96 08/15/16 15:00 92 H 19 112/74 98 08/15/16 14:00 91 H 17 109/72 97 08/15/16 13:00 102 H 23 120/73 98 08/15/16 12:00 99.7 F 98 H 20 97/68 98 08/15/16 11:08 97 08/15/16 11:00 96 H 18 111/73 98 08/15/16 10:00 101 H 22 109/75 96 08/15/16 09:00 91 H 18 108/72 96 08/15/16 08:00 100.0 F 97 H 20 121/75 99 Oxygen-Last 24 hours O2 Percentage 2 Liters = 28% O2 Percentage 2 Liters = 28% O2 Percentage 2 Liters = 28% O2 Percentage 2 Liters = 28% O2 Percentage 2 Liters = 28% O2 Percentage 2 Liters = 28% O2 Percentage 2 Liters = 28% O2 Percentage 2 Liters = 28% O2 Percentage 2 Liters = 28% O2 Percentage 2 Liters = 28% O2 Percentage 2 Liters = 28% O2 Percentage 2 Liters = 28% Pain Assessment - Last Documented Pain Intensity 3 Pain Scale Used 0-10 Pain Scale Intake and Output: Intake & Output 08/13/16 08/14/16 08/15/16 08/16/16 11:59 11:59 11:59 11:59 Intake Total 2381 2091 2160 4155 Output Total 2170 1480 2308 3135 Balance 211 611 -148 1020 Weight 87.543 kg Lab Results: Lab Results-Last 24 Hours 08/08/16 08/16/16 08/16/16 Range/Units 12:41 05:38 05:38 WBC 11.4 H (4.0-10.5) K/mm3 RBC 3.42 L (4.1-5.6) M/mm3 Hgb 11.3 L (12.5-18.0) gm/dl Hct 33.5 L (42-50) % MCV 98.0 (78-100) fl MCH 33.0 H (26-32) pg MCHC 33.7 (32-36) g/dl RDW 12.4 (11.5-14.0) % Plt Count 262 (150-450) K/mm3 MPV 8.6 (6-9.5) fl Segmented Neutrophils 72 H (36.-66.) % Lymphocytes (Manual) 16 L (24-44) % Monocytes (Manual) 7 (0.0-12.0) % Eosinophils (Manual) 5 H (0.00-3.0) % Differential Comment NORMAL Platelet Estimate NORMAL (NORMAL) Sodium 137 (136-145) mEq/L Potassium 4.0 (3.5-5.1) mEq/L Chloride 104 (98-107) mEq/L Carbon Dioxide 26.1 (21-32) mEq/L Anion Gap 11.0 (5-15) MEQ/L BUN 19 (9-20) mg/dL Creatinine 0.84 (0.55-1.30) mg/dl Estimated GFR > 60 ML/MIN Glucose 111 H (70-110) MG/DL Calcium 7.8 L (8.5-10.1) mg/dL Magnesium 2.0 (1.8-2.4) mg/dL Total Bilirubin 0.5 (0.2-1.0) mg/dL AST 15 (15-37) U/L ALT 14 (12-78) U/L Alkaline Phosphatase 27 L (46-116) U/L Serum Total Protein 5.1 L (6.4-8.2) gm/dL Albumin 1.8 L (3.4-5.0) g/dL Surg PTH Diagnosis See Note H Multi-Disciplinary Progress Notes: Multi-Disciplinary Progress Notes 08/15/16 14:29 Nutrition Note by Nicole Salazar F/u Note: Pt NPO 08/12. Labs 08/15= Na 134, BUN 21, glu 140, alb 2.0, hgb 12.3, hct 36.8. Weight stable. Recommend to resume po intake within 3 days. Will con't to monitor and f/u prn. T.CHAIM Salazar Initialized on 08/15/16 14:29 - END OF NOTE Assessment/Plan (1) H/O resection of rectum Current Visit: Yes Status: Acute Assessment & Plan: Will have Andriy Parks check in on him, pt thinks may not be working correctly as pain has been increasing. On meropenem and flagyl. WBC count decreased today. Code(s): Q42.1 - CONGEN ABSENCE, ATRESIA AND STENOSIS OF RECTUM W/O FISTULA (2) Ileostomy present Current Visit: Yes Status: Acute Code(s): Z93.2 - ILEOSTOMY STATUS (3) Pulmonary embolism Current Visit: Yes Status: Resolved Assessment & Plan: history of. Will resume lovenox when surgery OKs it. Plan to send pt home on his previous dose of xarelto. Code(s): I26.99 - OTHER PULMONARY EMBOLISM WITHOUT ACUTE COR PULMONALE (4) Tubulovillous adenoma of rectum Current Visit: Yes Status: Acute Code(s): D12.8 - BENIGN NEOPLASM OF RECTUM
[2016-08-16] MEDS: MORPHINE SULFATE 2 MG INJ IV PRN ×4 (08:54→23:21)
[2016-08-16] MEDS: Morphine PCA 1 MG/ML 30 ML IV PRN ×2 (13:00→21:36)
[2016-08-16] MEDS ORDERED: Zofran 4 MG/2 ML VIAL IV PRN (13:28)
[2016-08-16] MEDS ORDERED: Sodium Chloride 0.9% 500 ML 500 ML IV SCH (17:30)
[2016-08-16] MEDS: ENOXAPARIN SODIUM SQ SCH (17:46)
[2016-08-16] MEDS: Nicoderm CQ 21 MG TOP SCH (21:02)
[2016-08-17] MEDS: D5W/0.45NS W/ 20mEq KCl 1000 ML 1,000 ML IV SCH ×2 (01:02→12:49)
[2016-08-17] MEDS: TORAdol 30 mg Injection IV PRN ×3 (01:05→18:47)
[2016-08-17] MEDS: BENADRYL 25 MG CAPSULE PO PRN (01:06)
[2016-08-17] MEDS: FLAGYL 500 MG IVPB 100 ML IV SCH ×3 (01:09→17:21)
[2016-08-17] MEDS: Morphine PCA 1 MG/ML 30 ML IV PRN (05:34)
[2016-08-17] MEDS: Merrem 1 GM 1 G in Sodium Chloride 100ML MINI-BAG PLUS 100 ML IV SCH ×3 (06:07→21:38)
[2016-08-17] MEDS: Sodium Chloride 0.9% 10 ML FLUSH Syringe IJ SCH (06:07)
[2016-08-17] MEDS: PROTONIX 40 MG IV*** 80 MG in Sodium Chloride 0.9% 500 ML 500 ML IV SCH ×2 (07:51→19:50)
[2016-08-17] MEDS: ENOXAPARIN SODIUM SQ SCH (08:17)
--- NOTE | 2016-08-17 08:35 | PCM.NOTE ---
Date and Time: 08/17/16832 Subjective Assessment: patient with no new complaints, still having pain control issues. thinks he is getting tolerant to the morphine Objective Exam General Appearance: no apparent distress, alert Respiratory Exam: normal breath sounds, lungs clear, No respiratory distress Cardiovascular Exam: regular rate/rhythm, normal heart sounds Gastrointestinal/Abdomen Exam: soft, other (ostomy pink viable, serous output from JOBY. scant #1 and #2, 60mL #3 overnight) OBJECTIVE DATA Vital Signs: Vital Signs - 24 hr Temp Pulse Resp BP Pulse Ox 08/17/16 07:49 67 08/17/16 07:48 16 08/17/16 07:47 98.1 F 67 16 136/84 98 08/17/16 07:26 98 08/17/16 06:50 99 08/17/16 04:00 98.7 F 66 16 125/78 98 08/17/16 03:00 66 16 139/84 99 08/17/16 01:00 70 17 138/85 97 08/17/16 00:00 98.8 F 74 17 142/88 96 08/16/16 23:00 98.8 F 80 147/88 08/16/16 21:16 70 15 98 08/16/16 21:00 98.7 F 72 15 138/91 98 08/16/16 20:00 70 15 146/90 99 08/16/16 18:00 98.0 F 73 18 131/87 97 08/16/16 17:00 98.0 F 70 18 132/71 97 08/16/16 16:00 98.0 F 74 20 146/88 97 08/16/16 15:00 98.4 F 78 20 134/83 99 08/16/16 14:00 98.1 F 73 20 119/68 98 08/16/16 13:00 98.7 F 73 20 127/86 98 08/16/16 11:37 98.0 F 87 18 112/72 97 08/16/16 11:00 98.0 F 87 18 106/77 97 08/16/16 10:00 76 18 115/68 98 08/16/16 09:00 99.0 F 74 18 110/69 98 Oxygen-Last 24 hours O2 Percentage 3 Liters = 32% O2 Percentage 2 Liters = 28% O2 Percentage 2 Liters = 28% O2 Percentage 2 Liters = 28% O2 Percentage 2 Liters = 28% O2 Percentage 2 Liters = 28% O2 Percentage 2 Liters = 28% O2 Percentage 2 Liters = 28% Pain Assessment - Last Documented Pain Intensity 4 Pain Scale Used 0-10 Pain Scale Intake and Output: Intake & Output 08/14/16 08/15/16 08/16/16 08/17/16 11:59 11:59 11:59 11:59 Intake Total 2091 2160 4155 2483 Output Total 1480 8314 3135 4025 Balance 611 -148 1020 -1542 Assessment/Plan (1) Ileostomy present Current Visit: Yes Status: Acute Assessment & Plan: stable at this time, will change to po pain meds when ok with surgery. Code(s): Z93.2 - ILEOSTOMY STATUS (2) S/P colon resection Current Visit: Yes Status: Acute Code(s): Z90.49 - ACQUIRED ABSENCE OF OTHER SPECIFIED PARTS OF DIGESTIVE TRACT (3) Pulmonary embolism Current Visit: Yes Status: Resolved Code(s): I26.99 - OTHER PULMONARY EMBOLISM WITHOUT ACUTE COR PULMONALE
[2016-08-17] MEDS: PERCOCET TABLET 5/325MG PO PRN ×3 (12:49→21:32)
[2016-08-17] MEDS: Nicoderm CQ 21 MG TOP SCH (21:31)
[2016-08-18] MEDS: D5W/0.45NS W/ 20mEq KCl 1000 ML 1,000 ML IV SCH ×3 (00:17→22:44)
[2016-08-18] MEDS: Sodium Chloride 0.9% 10 ML FLUSH Syringe IJ SCH ×5 (00:21→23:09)
[2016-08-18] MEDS: TORAdol 30 mg Injection IV PRN ×4 (01:26→19:43)
[2016-08-18] MEDS: FLAGYL 500 MG IVPB 100 ML IV SCH ×3 (01:26→17:46)
[2016-08-18] MEDS: PERCOCET TABLET 5/325MG PO PRN ×4 (02:44→21:42)
[2016-08-18 05:38] LABS: Mean Cell Volume 94.6 fl (78-100); Mean Platelet Volume 8.6 fl (6-9.5); Platelet Count 285 K/mm3 (150-450); Red Blood Count 3.52 M/mm3 (4.1-5.6); Red Cell Distribution Width 11.6 % (11.5-14.0); White Blood Count 9.4 K/mm3 (4.0-10.5)
[2016-08-18] MEDS: Merrem 1 GM 1 G in Sodium Chloride 100ML MINI-BAG PLUS 100 ML IV SCH ×3 (05:41→21:42)
[2016-08-18 05:45] LABS: Mean Corpuscular Hemoglobin 32.6 pg (26-32)
[2016-08-18 06:08] LABS: ALBUMIN 1.8 g/dL (3.4-5.0); ALKALINE PHOSPHATASE 31 U/L (46-116); ANION GAP 9.8 MEQ/L (5-15); BILIRUBIN,TOTAL 0.5 mg/dL (0.2-1.0); BLOOD UREA NITROGEN 10 mg/dL (9-20); CHLORIDE 103 mEq/L (98-107); Carbon Dioxide 27.2 mEq/L (21-32); Glucose 109 MG/DL (70-110); Potassium 3.9 mEq/L (3.5-5.1); SGOT/AST 17 U/L (15-37); SGPT/ALT 13 U/L (12-78); SODIUM 136 mEq/L (136-145)
[2016-08-18 06:22] LABS: BAND 2 % (0.0-2.0); Eosinophil 3 % (0.00-3.0); Platelet Estimate NORMAL (NORMAL); Total Cells Counted 100; Toxic Granulation 2+
--- NOTE | 2016-08-18 08:01 | PCM.NOTE ---
Date and Time: 08/18/16 0759 Subjective Assessment: patient tolerating po intake, no problems with hiccups, no nausea or vomiting. has output in ostomy Objective Exam General Appearance: no apparent distress, alert Skin Exam: normal color, warm, dry Respiratory Exam: normal breath sounds Cardiovascular Exam: regular rate/rhythm, normal heart sounds Gastrointestinal/Abdomen Exam: soft, normal bowel sounds, other (ostomy pink and viable) Extremity Exam: normal inspection, normal range of motion OBJECTIVE DATA Vital Signs: Vital Signs - 24 hr Temp Pulse Resp BP Pulse Ox 08/18/16 07:20 98.1 F 78 20 142/89 94 L 08/18/16 04:00 98.0 F 74 16 153/93 93 L 08/18/16 00:00 98.5 F 79 16 146/94 94 L 08/17/16 20:00 98.8 F 75 14 144/85 93 L 08/17/16 16:00 98.9 F 73 20 139/84 95 08/17/16 12:00 98.1 F 77 18 127/85 98 08/17/16 09:34 81 16 95 Pain Assessment - Last Documented Pain Intensity 5 Pain Scale Used 0-10 Pain Scale Intake and Output: Intake & Output 08/15/16 08/16/16 08/17/16 08/18/16 11:59 11:59 11:59 11:59 Intake Total 2160 4155 2723 4094 Output Total 2308 3135 4435 3222 Balance -148 1020 -1712 872 Lab Results: Lab Results-Last 24 Hours 08/18/16 08/18/16 Range/Units 05:15 05:15 WBC 9.4 (4.0-10.5) K/mm3 RBC 3.52 L (4.1-5.6) M/mm3 Hgb 11.5 L (12.5-18.0) gm/dl Hct 33.3 L (42-50) % MCV 94.6 (78-100) fl MCH 32.6 H (26-32) pg MCHC 34.5 (32-36) g/dl RDW 11.6 (11.5-14.0) % Plt Count 285 (150-450) K/mm3 MPV 8.6 (6-9.5) fl Segmented Neutrophils 81 H (36.-66.) % Band Neutrophils 2 (0.0-2.0) % Lymphocytes (Manual) 8 L (24-44) % Monocytes (Manual) 6 (0.0-12.0) % Eosinophils (Manual) 3 (0.00-3.0) % Differential Comment NORMAL Toxic Granulation 2+ Platelet Estimate NORMAL (NORMAL) Sodium 136 (136-145) mEq/L Potassium 3.9 (3.5-5.1) mEq/L Chloride 103 (98-107) mEq/L Carbon Dioxide 27.2 (21-32) mEq/L Anion Gap 9.8 (5-15) MEQ/L BUN 10 (9-20) mg/dL Creatinine 0.72 (0.55-1.30) mg/dl Estimated GFR > 60 ML/MIN Glucose 109 (70-110) MG/DL Calcium 7.6 L (8.5-10.1) mg/dL Total Bilirubin 0.5 (0.2-1.0) mg/dL AST 17 (15-37) U/L ALT 13 (12-78) U/L Alkaline Phosphatase 31 L (46-116) U/L Serum Total Protein 5.0 L (6.4-8.2) gm/dL Albumin 1.8 L (3.4-5.0) g/dL Assessment/Plan (1) Ileostomy present Current Visit: Yes Status: Acute Assessment & Plan: stable at this time, continue lovenox for prophylaxis. will hold on xarelto at this time until taking regular diet and more healed from 2 surgeries. PE was more than a year ago and was postoperative so prophylactic lovenox is appropriate at this time. Code(s): Z93.2 - ILEOSTOMY STATUS (2) S/P colon resection Current Visit: Yes Status: Acute Code(s): Z90.49 - ACQUIRED ABSENCE OF OTHER SPECIFIED PARTS OF DIGESTIVE TRACT (3) Pulmonary embolism Current Visit: Yes Status: Resolved Code(s): I26.99 - OTHER PULMONARY EMBOLISM WITHOUT ACUTE COR PULMONALE
[2016-08-18] MEDS: ENOXAPARIN SODIUM SQ SCH (10:32)
[2016-08-18] MEDS: PROTONIX 40 MG IV*** 80 MG in Sodium Chloride 0.9% 500 ML 500 ML IV SCH (15:23)
[2016-08-18] MEDS: Morphine PCA 1 MG/ML 30 ML IV PRN ×2 (18:52→20:00)
[2016-08-18] MEDS: Nicoderm CQ 21 MG TOP SCH (21:42)
[2016-08-18] MEDS: BENADRYL 25 MG CAPSULE PO PRN (23:03)
[2016-08-19] MEDS: FLAGYL 500 MG IVPB 100 ML IV SCH ×3 (00:53→16:26)
[2016-08-19] MEDS: PROTONIX 40 MG IV*** 80 MG in Sodium Chloride 0.9% 500 ML 500 ML IV SCH (00:53)
[2016-08-19] MEDS: TORAdol 30 mg Injection IV PRN ×3 (01:46→16:26)
[2016-08-19] MEDS: PERCOCET TABLET 5/325MG PO PRN ×5 (03:12→21:05)
[2016-08-19] MEDS: Merrem 1 GM 1 G in Sodium Chloride 100ML MINI-BAG PLUS 100 ML IV SCH ×3 (05:30→21:04)
[2016-08-19 05:59] LABS: Mean Cell Volume 93.8 fl (78-100); Mean Corpuscular Hemoglobin 32.6 pg (26-32); Mean Platelet Volume 8.8 fl (6-9.5); Platelet Count 329 K/mm3 (150-450); Red Blood Count 3.52 M/mm3 (4.1-5.6); Red Cell Distribution Width 11.9 % (11.5-14.0); White Blood Count 10.2 K/mm3 (4.0-10.5)
--- NOTE | 2016-08-19 08:27 | PCM.NOTE ---
Date and Time: 08/19/16825 Subjective Assessment: doing well, no new complaints. tolerating regular diet, pain is controlled. he is able to ambulate some Objective Exam General Appearance: no apparent distress, alert Respiratory Exam: normal breath sounds, lungs clear, No respiratory distress Cardiovascular Exam: regular rate/rhythm, normal heart sounds Gastrointestinal/Abdomen Exam: soft, other (ostomy pink/viable) Extremity Exam: normal inspection, normal range of motion OBJECTIVE DATA Vital Signs: Vital Signs - 24 hr Temp Pulse Resp BP Pulse Ox 08/19/16 07:30 97.8 F 70 20 130/78 95 08/19/16 04:00 98.3 F 71 16 139/85 94 L 08/19/16 00:00 96 08/18/16 23:57 98.4 F 74 18 139/90 95 08/18/16 20:00 98.6 F 76 18 138/89 96 08/18/16 19:16 95 08/18/16 16:09 98.4 F 72 18 159/83 95 08/18/16 11:15 98 F 79 20 139/82 95 Pain Assessment - Last Documented Pain Intensity 7 Pain Scale Used 0-10 Pain Scale Intake and Output: Intake & Output 08/16/16 08/17/16 08/18/16 08/19/16 11:59 11:59 11:59 11:59 Intake Total 4155 2723 4194 5385 Output Total 3130 4490 3822 3290 Balance 1020 -2174 930 8304 Lab Results: Lab Results-Last 24 Hours 08/19/16 Range/Units 05:25 WBC 10.2 (4.0-10.5) K/mm3 RBC 3.52 L (4.1-5.6) M/mm3 Hgb 11.5 L (12.5-18.0) gm/dl Hct 33.0 L (42-50) % MCV 93.8 (78-100) fl MCH 32.6 H (26-32) pg MCHC 34.8 (32-36) g/dl RDW 11.9 (11.5-14.0) % Plt Count 329 (150-450) K/mm3 MPV 8.8 (6-9.5) fl Multi-Disciplinary Progress Notes: Multi-Disciplinary Progress Notes 08/18/16 14:20 Nutrition Note by Shayy Frankel F/u Note: Pt diet advanced to full liquid / and regular ordered to start dinner /. Labs 5/ = tot pro 5, alb 1.8, hgb 11.5, hct 33.3. No new wt documented. Recommend continue regular diet with Prostat 64 30 mls tid with meals. goal #1) po intake >=75%. Will con't to monitor and f/u prn. CHAIM Kwong Initialized on 08/18/16 14:20 - END OF NOTE 08/18/16 11:00 (created 08/18/16 16:41) Case Management Note by Shyla Sommer REVIEWED DISCHARGE PLAN. PROVIDES SELF CARE, INDEPENDENT WITH ALL ADL'S. CONTINUES TO DECLINE NEEDS FOR DISCHARGE. SIGNIFICANT OTHER IS NURSE. WILL CONTINUE TO FOLLOW AND ASSESS FOR ALL DC NEEDS. Initialized on 08/18/16 16:41 - END OF NOTE Assessment/Plan (1) Ileostomy present Current Visit: Yes Status: Acute Code(s): Z93.2 - ILEOSTOMY STATUS (2) S/P colon resection Current Visit: Yes Status: Acute Code(s): Z90.49 - ACQUIRED ABSENCE OF OTHER SPECIFIED PARTS OF DIGESTIVE TRACT (3) Pulmonary embolism Current Visit: Yes Status: Resolved Assessment & Plan: continue lovenox for prophylaxis Code(s): I26.99 - OTHER PULMONARY EMBOLISM WITHOUT ACUTE COR PULMONALE
[2016-08-19] MEDS: ENOXAPARIN SODIUM SQ SCH (08:45)
[2016-08-19] MEDS: D5W/0.45NS W/ 20mEq KCl 1000 ML 1,000 ML IV SCH ×4 (08:49→21:06)
[2016-08-19] MEDS: Sodium Chloride 0.9% 10 ML FLUSH Syringe IJ SCH ×3 (10:00→21:04)
[2016-08-19] MEDS: Morphine PCA 1 MG/ML 30 ML IV PRN (10:38)
[2016-08-19] MEDS: Nicoderm CQ 21 MG TOP SCH (21:04)
[2016-08-20] MEDS: PERCOCET TABLET 5/325MG PO PRN ×3 (01:38→12:00)
[2016-08-20] MEDS: FLAGYL 500 MG IVPB 100 ML IV SCH ×2 (01:39→10:22)
[2016-08-20 05:31] LABS: Mean Cell Volume 93.6 fl (78-100); Mean Platelet Volume 8.6 fl (6-9.5); Platelet Count 379 K/mm3 (150-450); Red Blood Count 3.75 M/mm3 (4.1-5.6); Red Cell Distribution Width 11.9 % (11.5-14.0); White Blood Count 10.8 K/mm3 (4.0-10.5)
[2016-08-20 05:32] LABS: Mean Corpuscular Hemoglobin 32.2 pg (26-32)
[2016-08-20] MEDS: Merrem 1 GM 1 G in Sodium Chloride 100ML MINI-BAG PLUS 100 ML IV SCH (05:39)
[2016-08-20] MEDS: Sodium Chloride 0.9% 10 ML FLUSH Syringe IJ SCH (05:40)
[2016-08-20 05:51] LABS: ALBUMIN 1.8 g/dL (3.4-5.0); ALKALINE PHOSPHATASE 30 U/L (46-116); ANION GAP 10.4 MEQ/L (5-15); BILIRUBIN,TOTAL 0.4 mg/dL (0.2-1.0); BLOOD UREA NITROGEN 9 mg/dL (9-20); CHLORIDE 103 mEq/L (98-107); Glucose 111 MG/DL (70-110); Potassium 4.1 mEq/L (3.5-5.1); SGOT/AST 19 U/L (15-37); SGPT/ALT 20 U/L (12-78); SODIUM 135 mEq/L (136-145); Total Protein 5.4 gm/dL (6.4-8.2)
[2016-08-20] MEDS: TORAdol 30 mg Injection IV PRN (07:38)
[2016-08-20] MEDS: ENOXAPARIN SODIUM SQ SCH (10:21)
--- NOTE | 2016-08-20 11:34 | PCM.DS ---
Discharge Summary Date of Admission: 08/08/16 10:14 Admitting Physician: MATTHEW CALVILLO Consults: Consults on Case 08/08/16 17:52 Consult Physician ROUTINE 08/10/16 11:20 Consult Physician ROUTINE Primary Care Provider: SAMANTHA MILLER TORY Allergies Allergies amoxicillin Adverse Reaction (Verified 08/08/16 10:40) [facility] Hospital Summary - Hospital Course Hospital Course: Pt found to have large mass in the colon, was resected but his anastamosis leaked and he had a second surgery with ostomy. Post operatively he spent several days in the ICU, now is feeling much better, up out of bed and tolerating regular diet. ostomy is working well, no issues reported by pt. Mass was found to be tubulovillous adenoma. - Vitals & Intake/Output Vital Signs: Vital Signs Temperature 98.4 F 08/20/16 08:00 Pulse Rate 79 08/20/16 08:00 Respiratory Rate 19 08/20/16 08:00 Blood Pressure 127/77 08/20/16 08:00 O2 Sat by Pulse Oximetry 96 08/20/16 08:00 Oxygen-Last Documented O2 Percentage 3 Liters = 32% Intake & Output: Intake & Output 08/17/16 08/18/16 08/19/16 08/20/16 11:59 11:59 11:59 11:59 Intake Total 2723 4194 5625 2146 Output Total 4470 3822 3290 2936 Balance -4722 918 5112 -790 - Lab Result Diagrams: 08/20/16 05:15 08/20/16 05:15 Lab Results-Last 24 Hrs: Lab Results-Last 24 Hours 08/20/16 08/20/16 Range/Units 05:15 05:15 WBC 10.8 H (4.0-10.5) K/mm3 RBC 3.75 L (4.1-5.6) M/mm3 Hgb 12.1 L (12.5-18.0) gm/dl Hct 35.1 L (42-50) % MCV 93.6 (78-100) fl MCH 32.2 H (26-32) pg MCHC 34.5 (32-36) g/dl RDW 11.9 (11.5-14.0) % Plt Count 379 (150-450) K/mm3 MPV 8.6 (6-9.5) fl Sodium 135 L (136-145) mEq/L Potassium 4.1 (3.5-5.1) mEq/L Chloride 103 (98-107) mEq/L Carbon Dioxide 26.0 (21-32) mEq/L Anion Gap 10.4 (5-15) MEQ/L BUN 9 (9-20) mg/dL Creatinine 0.81 (0.55-1.30) mg/dl Estimated GFR > 60 ML/MIN Glucose 111 H (70-110) MG/DL Calcium 8.2 L (8.5-10.1) mg/dL Total Bilirubin 0.4 (0.2-1.0) mg/dL AST 19 (15-37) U/L ALT 20 (12-78) U/L Alkaline Phosphatase 30 L (46-116) U/L Serum Total Protein 5.4 L (6.4-8.2) gm/dL Albumin 1.8 L (3.4-5.0) g/dL Micro Results-Entire Visit: Microbiology 08/14/16 20:50 - Final Blood Not Reportable Blood Culture - Final NO GROWTH 08/14/16 16:55 - Final Blood Not Reportable Blood Culture - Final NO GROWTH 08/13/16 16:30 - Final Urine, Indwelling Catheter NO GROWTH 08/08/16 16:10 Urine Culture - Final Catherized NO GROWTH - Procedures and Test Procedures and Tests throughout Hospitalization: Therapy Orders & Screens 08/08/16 17:50 Incentive Spirometry Assessmen UD Comment: 10 breaths q 1 hr WA Diagnosis: post op laproscopic assistive colon resection 08/08/16 17:59 Oxygen NASAL CANNULA 3 lpm Comment: for sat less than 93% and notify anesthesia Diagnosis: post op laproscopic assistive colon resection 08/08/16 18:00 RT Miscellaneous Order ROUTINE Comment: Physician Instructions: Reason For Exam: O2, ambu bag w/mask and wall suction avail. Diagnosis: post op laproscopic assistive colon resection 08/12/16 20:47 EKG STAT Comment: Diagnosis: post op laproscopic assistive colon resection Discharge Exam General Appearance: no apparent distress Neurologic Exam: alert, oriented x 3, cooperative Skin Exam: normal color, warm, dry Respiratory Exam: normal breath sounds, lungs clear, No crackles/rales, No rhonchi, No wheezing Cardiovascular Exam: normal heart sounds, tachycardia (pt busy putting on his pants, admits it is difficult. reg rhythm.), No murmur Gastrointestinal/Abdomen Exam: soft, normal bowel sounds, other (binder in place ) Extremity Exam: No pedal edema, No swelling Final Diagnosis/Problem List - Final Discharge Diagnosis/Problem (1) H/O resection of rectum Current Visit: Yes Status: Acute Assessment & Plan: Doing well, surgery releasing pt today. Has rx for cipro, flagyl, and norco from surgery, thank you! F/u with Dr. Vazquez in 7-9 d. (2) Colostomy care Current Visit: Yes Status: Acute Assessment & Plan: appears to be doing very well. (3) Pulmonary embolism Current Visit: Yes Status: Resolved Assessment & Plan: history of; has been on prophylaxis here, lovenox 40mg SQ daily. home on xarelto. (4) Tubulovillous adenoma of rectum Current Visit: Yes Status: Resolved - Discharge Disposition: Home, Self-Care Condition: Stable Prescriptions: Continue Rivaroxaban [Xarelto] 20 mg PO DAILY Additional Instructions: follow up with in 7-9 days call if any concerns. for appointment. Follow up with: SAMANTHA MILLER MD [Primary Care Provider] - 1 Week VANNESA CALVILLO [COURTESY STAFF] - 1 Week Forms: Patient Portal Information
[2016-08-20 12:49] VITALS: BP 132/90; PULSE 92; O2SAT 94
[2016-08-20 15:42] LABS: Total Cells Counted 100
[2016-08-20 15:43] LABS: ANISOCYTOSIS 1+; Platelet Estimate NORMAL (NORMAL); Poikilocytosis 1+
--- NOTE | 2016-08-23 07:58 | DS ---
ADMISSION DIAGNOSIS: Large tubulovillous adenoma not safely resectable endoscopically, need for surgical resection. DISCHARGE DIAGNOSES: 1) LARGE TUBULOVILLOUS ADENOMA NOT SAFELY RESECTABLE ENDOSCOPICALLY, NEED FOR SURGICAL RESECTION WITH FOCAL AREAS APPROACHING HIGH GRADE DYSPLASIA ON FINAL PATH. 2) SMALL ANASTOMOTIC LEAK REQUIRING DIVERTING ILEOSTOMY. PROCEDURES: 1) Laparoscopic assisted, hand assisted very low anterior resection with primary end anastomosis. 2) Laparotomy with wash out of pelvis and diverting ileostomy. PROCEDURE PERFORMED BY: Dr. Andriy Heller and assistant executive housekeeper Dr. Jaden Isaac. HOSPITAL COURSE: As noted above. He had endoscopically unresectable large polyp distal rectum. It was felt that he is a candidate for consideration of low anterior resection. Risks and benefits had been explained in detail to the patient preoperatively including the risk of bleed. He underwent the above mentioned initial procedure and did well early postoperatively. He was passing some flatus. He has had a completion colonoscopy at the original procedure with no evidence of any leak. It was a viable air-tight anastomosis tension-free. Again, he was passing some flatus early on. However developed some distention and had some bilious drainage out one of his JOBY's on the right side. It was felt that he had a small leak given the very low location of his anastomosis. It was felt worthwhile to wash his pelvis and abdomen out and give him a diverting ileostomy in effort to hopefully salvage the low end anastomosis as it would be very difficult to re-attach as it was completely taken down at this point. Once that was done five days postoperative the patient continued to improve. His ileostomy remained viable. The wound looked good. JOBY's were serosanguineous and not bilious. Ileostomy viable, good output. He was gradually advanced on his diet. His white blood cell count had fallen down to the normal range. He was afebrile. Good pain control on oral pain medication. He was switched over to oral antibiotics. He is ready to be discharged home. He was discharged home in good condition on 08/20/2016, to follow up in the office in eight or nine days for staple removal and drain removal. He is to return sooner if any questions or concerns. Again, he is tolerating a diet with his ileostomy functioning well.
== END 2016-08-20 12:45 | disposition home or self-care (01) | DRG 329 ==
LOC: EDSTATUS 08-08 08:44 → MED SURG 08-08 10:14 → EDSTATUS 08-08 13:09 → ICU 08-14 17:30 → MED SURG 08-17 13:30
PROVIDERS: ADMIT Surgery; ATTEND Family Medicine
PROC: 0DBE4ZZ Excision of Large Intestine, Percutaneous Endoscopic Approach (ICD-10-PCS; principal; 2016-08-08)
PROC: 0WJH4ZZ Inspection of Retroperitoneum, Percutaneous Endoscopic Approach (ICD-10-PCS; 2016-08-13)
PROC: 0D1M0Z4 Bypass Descending Colon to Cutaneous, Open Approach (ICD-10-PCS; 2016-08-13)
DX: D12.8 Benign neoplasm of rectum (principal); K65.0 Generalized (acute) peritonitis; I26.99 Other pulmonary embolism without acute cor pulmonale; Q42.1 Congenital absence, atresia and stenosis of rectum without fistula; K56.7 Ileus, unspecified; K91.89 Other postprocedural complications and disorders of digestive system; Z86.711 Personal history of pulmonary embolism; Z79.01 Long term (current) use of anticoagulants; Z72.0 Tobacco use; Z86.718 Personal history of other venous thrombosis and embolism; Z90.49 Acquired absence of other specified parts of digestive tract; Z93.2 Ileostomy status; R06.6 Hiccough; J06.9 Acute upper respiratory infection, unspecified; Y83.2 Surgical operation with anastomosis, bypass or graft as the cause of abnormal reaction of the patient, or of later complication, without mention of misadventure at the time of the procedure
CPT/HCPCS: 00840; 36415; 62326; 71010; 71260; 74020; 74177; 80048; 80053; 81000; 83605; 83735; 84484; 85025; 85027; 85610; 87040; 87086; 88305; 88309; 93005; 94760; 94762; 94770; 99140; J0330; J0694; J1100; J1170; J1642; J1650; J1885; J1940; J2060; J2250; J2270; J2310; J2370; J2405; J2704; J3010; L0625; A9270-GY

== ENCOUNTER 2016-08-29 10:33 | Day surgery (SDC) | payer OTHER ==
[~2016-08-29 10:33] MED LIST changes: -Ketamine HCl 50 MG/ML IJ ONE; +Ketamine HCl 50 MG/ML IV ONE
[2016-08-29] MEDS ORDERED: Lactated Ringers 1,000 ML IV SCH (11:00)
[2016-08-29 14:48] VITALS: BP 127/88; PULSE 85; O2SAT 98
== END 2016-08-29 14:55 | disposition home or self-care (01) ==
LOC: SDC 10:33
PROVIDERS: ATTEND Surgery
DX: Z48.03 Encounter for change or removal of drains (principal); Z48.02 Encounter for removal of sutures
CPT/HCPCS: J2704

== ENCOUNTER 2016-12-05 10:10 | Day surgery (SDC) | payer OTHER ==
--- NOTE | 2016-12-02 14:22 | HP ---
DATE OF SURGERY: 12/05/2016 HISTORY OF PRESENT ILLNESS: The patient is a 46 year-old with prior history of large very low polyp and underwent low anterior resection which in the past was not carcinoma but he did develop a little small leak at that site of the anastomosis. He was treated with diverting ileostomy and conservative treatment. He has done quite well since that time. His path was benign lymph nodes with tubulovillous adenoma plus some high grade dysplasia so he definitely needed resection. At this time he is healing up and now interested in considering ostomy take down therefore preoperative evaluation with endoscopy for evaluation of his ileum as well as his colon for further evaluation. Risks and benefits explained in detail but not limited to. PAST SURGICAL HISTORY: Knee surgery in the past. Low anterior resection and later diverting ostomy. He had pulmonary embolism three weeks after surgery. ALLERGIES: AMOXICILLIN. FAMILY HISTORY: Negative. SOCIAL HISTORY: One and a half pack per day smoker. He does drink some alcohol denies abuse. REVIEW OF SYSTEMS: Twelve systems reviewed. No chest pain or palpitations other systems negative or noncontributory as above and per preadmission questionnaire. PHYSICAL EXAMINATION: GENERAL: No acute distress. HEENT: Sclerae nonicteric. NECK: No JVD. CHEST: Equal excursion, nonlabored breathing. CVS: Regular rate and rhythm. ABDOMEN: Soft. Ostomy fine. Incision fine. EXTREMITIES: No significant edema. NEURO: Alert, moving extremities symmetrically. No gross motor deficits noted. IMPRESSION: History of low anterior resection for tubulovillous adenoma unresectable endoscopically, approaching high grade dysplasia and needed resection. He had small leak from his anastomosis requiring diverting ostomy and now he is in need of follow up endoscopy to evaluate the colon and the ileum to evaluate whether he is a candidate for ostomy takedown. Risks and benefits explained in detail including but not limited to bleeding or infection, small risk of bowel injury or perforation possibly requiring open procedure, small risk of missed or nondiagnosis or incomplete exam possibly other studies or procedures. He understands and agrees to the planned procedure and will proceed as an outpatient.
[~2016-12-05 10:10] MED LIST changes: -DIPRIVAN 200 MG/20 ML IV ONE; -Ketamine HCl 50 MG/ML IV ONE; +Lactated Ringers 1,000 ML IV ONE; +Lactated Ringers 1,000 ML IV SCH
[2016-12-05] MEDS ORDERED: Ketamine HCl 50 MG/ML IV ONE (10:11)
[2016-12-05] MEDS ORDERED: DIPRIVAN 200 MG/20 ML IV ONE (10:11)
[2016-12-05 14:21] VITALS: O2SAT 96
[2016-12-05 14:23] VITALS: BP 132/79; PULSE 71
--- NOTE | 2016-12-06 08:38 | OP ---
SURGERY DATE/TIME: 12/05/2016 1205 PREOPERATIVE DIAGNOSIS: History of low anterior resection for polyp with dysplasia with delayed small anastomotic leak requiring diverting ileostomy now in need of endoscopic evaluation prior to take down of ostomy. POSTOPERATIVE DIAGNOSES: 1) Patchy areas of inflammation left colon. 2) Mild diverticulosis. 3) Small internal and external hemorrhoids. 4) Patent rectal anastomosis. No obvious signs of defect endoscopically. 5) Unremarkable ileum. PROCEDURES: 1) Colonoscopy to cecum with cold biopsy patchy areas of inflammation left colon. 2) Retrograde ileoscopy SURGEON: Dr. Andriy Heller. ANESTHESIA: MAC. ESTIMATED BLOOD LOSS: Minimal. INDICATIONS: As noted above. Risks and benefits explained in detail but not limited to and consent obtained. DESCRIPTION OF PROCEDURE AND FINDINGS: The patient is taken to the endoscopy room. MAC anesthesia introduced. After official time out and no disagreement with planned procedure, digital rectal exam did not reveal any rectal masses. Video colonoscope was carefully inserted. Anastomosis was patent. There were a few visible benny but the anastomotic site itself appeared to be healing well. No signs of any obvious defects currently. The scope is carefully passed up through the more proximal colon. There were some patchy areas of inflammation whether this is simple prep irritation, cold biopsies were taken to evaluate for microscopic colitis. Otherwise there are no signs of any large polyps, masses or obstructing lesions. The scope was able to be passed down the transverse colon, ascending colon all the way around to the cecum which was grossly unremarkable. On slow withdrawal of the scope did not reveal any signs other than a patchy area of inflammation that was cold biopsied. There were no sign of any large polyps, masses or obstructing lesions. Again the anastomosis appeared to be healed with a few visible benny but appeared to be healed anastomosis. No signs of any significant defects. He had some small internal and external hemorrhoids. The scope is withdrawn. The patient tolerated the procedure well. Attention is then turned to the ileoscopy to make sure the ileum was safe enough to proceed with ostomy take-down. The scope passed up through ileostomy. Retrograde ileoscopy was performed. A couple feet up there were no signs of any obvious inflammatory bowel disease, masses or any other mucosal lesions. The scope is withdrawn. The patient tolerated the procedure well. There were no immediate complications. Findings discussed with the family out in the waiting area. It was felt that he is a candidate to consider ostomy take-down at this time as his anastomosis appeared to be healed at the moment.
== END 2016-12-05 13:25 | disposition home or self-care (01) ==
LOC: SDC 10:10
PROVIDERS: ATTEND Surgery
PROC: 0DBG8ZX Excision of Left Large Intestine, Via Natural or Artificial Opening Endoscopic, Diagnostic (ICD-10-PCS; principal; 2016-12-05)
PROC: 0DJD8ZZ Inspection of Lower Intestinal Tract, Via Natural or Artificial Opening Endoscopic (ICD-10-PCS; 2016-12-05)
DX: K52.9 Noninfective gastroenteritis and colitis, unspecified (principal); K57.90 Diverticulosis of intestine, part unspecified, without perforation or abscess without bleeding; K64.4 Residual hemorrhoidal skin tags; K64.9 Unspecified hemorrhoids
CPT/HCPCS: 00810; 36415; 88305; J2704

== ENCOUNTER 2018-11-05 10:18 | Day surgery (SDC) | payer OTHER ==
--- NOTE | 2018-11-05 08:52 | HP ---
DATE OF SURGERY: 11/05/2018 HISTORY OF PRESENT ILLNESS: The patient is a 48 year-old bowel movements okay, occasional small bloody stool. Psoriasis reaction over abdomen. He has history of polyps. He had a low anterior resection in the past complicated by a small leak requiring temporary diversion. He has done fairly well since then. He is in need of follow up colonoscopy. He is also interested in considering possible internal hemorrhoid banding if indicated at the time of surgery. PAST MEDICAL HISTORY: He denies any chronic illnesses. PAST SURGICAL HISTORY: Colonoscopy in the past. He had a large polyp that required low anterior resection. He had tubular adenoma or polyp is approaching high grade dysplasia was completely excised. He had temporary diversion thereafter. He had ostomy and ileostomy takedown. He had been doing fairly well otherwise. MEDICATIONS: None on a regular basis. ALLERGIES: DILAUDID, AMOXICILLIN, ASPERTAME. FAMILY HISTORY: Negative in regards to this problem. SOCIAL HISTORY: One and a half pack per day smoker. He drinks alcohol a six-pack a week. REVIEW OF SYSTEMS: Fourteen systems reviewed pertinent for as noted above. PHYSICAL EXAMINATION: GENERAL: No acute distress. HEENT: Sclerae nonicteric. NECK: No JVD. CHEST: Equal excursion, nonlabored breathing. CVS: Regular rate and rhythm. ABDOMEN: Soft. EXTREMITIES: No significant edema. NEURO: Alert, oriented, moving extremities symmetrically. No gross motor deficits noted. RECTAL: Deferred timed to endoscopy exam. IMPRESSION: History of large polyp requiring very low anterior resection. At this time he had a little bit of rectal bleeding occasionally. He is interested in considering possible internal hemorrhoid banding if indicated at the time of procedure as well as need for follow up screening colonoscopy. Risks and benefits explained in detail but not limited to bleeding or infection, risk of bowel injury or perforation possibly requiring open procedure, risk of missed or nondiagnosis or incomplete exam possibly requiring barium enema, other studies or procedures, general risk of anesthesia or sedation. Regarding hemorrhoid banding general risk of aches or cramping, risk of ongoing bleeding or possible progression of hemorrhoidal disease possibly requiring other procedures down the road, general risk of anesthesia, deep venous thrombosis, pulmonary embolism, pneumonia, perioperative risk of aches and pains, risk of bowel prep or sedation but not limited to. He understands and agrees to the planned procedure, will proceed with outpatient following screening colonoscopy as well as possible internal hemorrhoid banding if indicated at the time of procedure.
[~2018-11-05 10:18] MED LIST changes: +DIPRIVAN 200 MG/20 ML IV ONE; +Ketamine HCl 50 MG/ML ONE; -Lactated Ringers 1,000 ML IV ONE; -Lactated Ringers 1,000 ML IV SCH
[2018-11-05] MEDS ORDERED: Lactated Ringers 1,000 ML IV SCH (11:00)
[2018-11-05 13:47] VITALS: O2SAT 98
[2018-11-05] MEDS ORDERED: TYLENOL EXTRA STRENGTH 500 MG PO PRN (13:47)
[2018-11-05 14:25] VITALS: BP 151/72; PULSE 65
--- NOTE | 2018-11-05 15:09 | OP ---
SURGERY DATE/TIME: 11/05/2018 1236 PREOPERATIVE DIAGNOSIS: History of very large rectal polyp requiring low anterior resection, need for follow up colonoscopy, history of some internal and external hemorrhoids. POSTOPERATIVE DIAGNOSIS: History of very large rectal polyp requiring low anterior resection, need for follow up colonoscopy, history of some internal and external hemorrhoids. PROCEDURES: 1) Colonoscopy to cecum with hot snare polypectomy, 3 mm descending colon polyp. 2) Hot biopsy removal of three to four small 2 mm raised lesion versus early polyps or hyperplastic lesion, path pending. 3) Internal hemorrhoid banding x3 columns. SURGEON: Dr. Andriy Heller. ANESTHESIA: MAC. ESTIMATED BLOOD LOSS: Minimal. INDICATIONS: As noted above. Risks and benefits explained in detail but not limited to and consent obtained. DESCRIPTION OF PROCEDURE AND FINDINGS: The patient is taken to the endoscopy room. MAC anesthesia introduced. After official time out and no disagreement with planned procedure, video colonoscope easily passed up through the anastomosis tortuous descending and sigmoid with external pressure. Cecum, appendiceal orifice and valve well visualized. Prep overall was fair with some liquidy stool suction irrigated as clear as possible but did limit the exam for very tiny lesions slightly. The scope slowly and carefully withdrawn. There were no signs of any large polyps, masses or obstructing lesions. He had a few diverticula in the left colon. In the descending colon he had three or four small 1.5 mm to 2 mm raised lesions versus hyperplastic lesions versus early polyps removed with hot biopsy forceps with brief bursts of cautery. He did have one that was about 3 mm that was very smooth in appearance that was removed with hot snare polypectomy brief bursts of cautery. Good hemostasis noted. Elevating well away from the bowel wall. Otherwise the anastomotic area is patent. No evidence of recurrence. He did have grade II/III internal and external hemorrhoids. He had requested a trial of banding as he had some rectal bleeding in the past. There had been no other obvious evidence of any other issues or source of rectal bleeding. The scope is removed. In lateral position under MAC anesthesia half-lanza retractor carefully inserted first starting at the left lateral as this hemorrhoid was prominent. Suction front clerk used to grasp the top edge of the hemorrhoid with feeding arteriole, in the left lateral position suction front clerk fired. Good tuft of tissue noted this was again repeated in the right posterior and then again in the right anterior position. These columns banded. The patient tolerated the procedure well. There were no immediate complications. Findings discussed with his mother out in the waiting area.
== END 2018-11-05 14:30 | disposition home or self-care (01) ==
LOC: SDC 10:18
PROVIDERS: ATTEND Surgery
DX: Z12.11 Encounter for screening for malignant neoplasm of colon (principal); K63.5 Polyp of colon; K64.8 Other hemorrhoids; K64.4 Residual hemorrhoidal skin tags; K57.30 Diverticulosis of large intestine without perforation or abscess without bleeding; Z86.010 Personal history of colon polyps; Z87.19 Personal history of other diseases of the digestive system
CPT/HCPCS: 88305; J2704; A9270-GY

== ENCOUNTER 2020-08-31 09:25 | Day surgery (SDC) | payer OTHER ==
--- NOTE | 2020-08-31 08:23 | HP ---
DATE OF SURGERY: 08/31/2020 HISTORY OF PRESENT ILLNESS: The patient had some intermittent rectal bleeding in the past, some constipation, feels movement passing upper and right lower quadrant at times. Given rectal bleeding, change in bowel habits, prior history of polyp, regard of very low resection and temporary ostomy, he is in need of follow up colonoscopy. PAST MEDICAL HISTORY: He has remote history of deep vein thrombosis. PAST SURGICAL HISTORY: Partial colectomy and temporary diverting ostomy and ostomy takedown in the past. Colonoscopy in the past. MEDICATIONS: Denies any medications on a regular basis. ALLERGIES: PENICILLIN. DILAUDID. ASPERTAME. FAMILY HISTORY: Diabetes, heart disease, some blood clots in the past. SOCIAL HISTORY: One and a half packs per day cigarettes. Alcohol use - Six pack per week. REVIEW OF SYSTEMS: Fourteen systems reviewed. No chest pain or palpitations. Other systems negative or noncontributory as above and per preadmission questionnaire. PHYSICAL EXAMINATION: GENERAL: No acute distress. HEENT: Sclerae nonicteric. NECK: No JVD. CHEST: Equal excursion, nonlabored breathing. CVS: Regular rate and rhythm. ABDOMEN: Soft. No peritoneal signs. EXTREMITIES: No significant edema. NEURO: Alert, oriented, moving extremities symmetrically. RECTAL: Deferred timed to endoscopy exam. PSYCH: Appropriate mood and affect. IMPRESSION: History of polyps, history of low resection in the past, history of temporary diverting ostomy and later takedown ostomy in the past, change in bowel habits, history of rectal bleeding, he is in need of colonoscopy with possible biopsy pending operative findings. Risks and benefits explained in detail including but not limited to bleeding or infection, risk of bowel injury or perforation possibly requiring open procedure, risk of missed or nondiagnosis or incomplete exam possibly requiring barium enema, other studies or procedures, general risk of anesthesia or sedation, risk of bowel prep but not limited to, consent obtained. Will proceed with outpatient follow up colonoscopy.
[~2020-08-31 09:25] MED LIST changes: -DIPRIVAN 200 MG/20 ML IV ONE; -Ketamine HCl 50 MG/ML ONE; +Lactated Ringers 1,000 ML IV SCH
[2020-08-31] MEDS ORDERED: Lactated Ringers 1,000 ML IV ONE (09:33)
[2020-08-31] MEDS ORDERED: DIPRIVAN 200 MG/20 ML IV ONE ×2 (11:36→11:54)
[2020-08-31] MEDS ORDERED: Versed 2 MG/2 ML Injection ONE (11:36)
[2020-08-31 12:34] VITALS: O2SAT 97
[2020-08-31 12:50] VITALS: PULSE 80
[2020-08-31 12:51] VITALS: BP 122/80
--- NOTE | 2020-09-01 08:33 | OP ---
SURGERY DATE/TIME: 08/31/2020 1140 PREOPERATIVE DIAGNOSIS: History of some rectal bleeding, history of constipation, change in bowel habits and prior history of large polyp required low anterior resection in the past. POSTOPERATIVE DIAGNOSES: 1) Mild diverticulosis. 2) Small early polyp ascending colon. 3) Small early polyp versus hyperplastic lesion in transverse colon. 4) Withdrawal time around eight minutes. 5) ASA Class II. Fair bowel prep. 6) Internal and external hemorrhoids. 7) Widely patent healed colorectal anastomotic site. PROCEDURES: 1) Colonoscopy to terminal ileum. 2) Retrograde ileoscopy. 3) Hot biopsy polypectomy small proximal ascending colon polyp. 4) Hot biopsy polypectomy small transverse colon polyps. SURGEON: Dr. Andriy Heller. ANESTHESIA: MAC. ESTIMATED BLOOD LOSS: Minimal. INDICATIONS: As noted above. Risks and benefits explained in detail but not limited to and consent obtained. DESCRIPTION OF PROCEDURE AND FINDINGS: The patient is taken to the operating room. MAC anesthesia introduced. After official time out and no disagreement with planned procedure, digital rectal exam did not reveal any rectal masses. He did have some internal and external hemorrhoids. Video colonoscope inserted and passed up the tortuous sigmoid, descending, transverse and ascending colon around to the cecum up to the terminal ileum. Retrograde ileoscopy is grossly unremarkable. Prep overall was fair. ASA Class II. Withdrawal time was about eight minutes slow careful withdrawal of the scope backwards. There was a small polyp on the fold, a very small 1.5 mm or so polyp hot biopsy forceps removal in the proximal ascending colon. Otherwise, there are no other signs of any large polyps, masses or obstructing lesions. Small polyp was noted in the transverse colon removed with hot biopsy forceps with brief bursts of cautery. Good hemostasis noted. He did have some mild diverticulosis. Otherwise the colorectal anastomotic site was widely patent. He did have some hemorrhoids veins distal to this. The scope is withdrawn. Findings discussed with the family or friend out in the waiting area. There were no immediate complications. I will see him back in the office next week. He needs to avoid constipation, continue high fiber diet to avoid straining for bowel movements to minimize progression of hemorrhoidal disease. I will see him back in the office next week.
== END 2020-08-31 12:55 | disposition home or self-care (01) ==
LOC: SDC 09:25
PROVIDERS: ATTEND Surgery
DX: K57.30 Diverticulosis of large intestine without perforation or abscess without bleeding (principal); Z86.010 Personal history of colon polyps; R19.4 Change in bowel habit; K64.4 Residual hemorrhoidal skin tags; K64.8 Other hemorrhoids; D12.2 Benign neoplasm of ascending colon
CPT/HCPCS: J2250; J2704

== ENCOUNTER 2024-01-01 08:44 | Day surgery (SDC) | payer OTHER ==
--- NOTE | 2024-01-01 08:12 | HP ---
HISTORY AND PHYSICAL HISTORY OF PRESENT ILLNESS: History of polyp requiring low anterior resection, requiring diverting ostomy in the past. He is in need of followup colonoscopy. PAST MEDICAL HISTORY: He has had polyps. He has had history of PE in the past. HOME MEDICATIONS: No medications on a regular basis. ALLERGIES: Aspartame, Dilaudid, penicillin. PAST SURGICAL HISTORY: He has had colon resection, had ostomy and ostomy takedown in the past, had bilateral knee arthroscopy in the past, had hand surgery and elbow surgery. SOCIAL HISTORY: Current every day smoker. Does drink alcohol daily. Does use marijuana. FAMILY HISTORY: Diabetes, [place]. REVIEW OF SYSTEMS: Twelve systems reviewed. No chest pain or palpitations. Otherwise, pertinent as noted above and per admission assessment and history of present illness. Occasional rectal bleeding in the past. No pain. History of polyps. He has had prior low anterior resection, diverting ostomy. He has a family history of colon cancer. He is in need for followup colonoscopy. PHYSICAL EXAMINATION: GENERAL: Height 6 feet. BMI 25.09. HEENT: Sclerae nonicteric. Extraocular movements intact. NECK: No JVD. CHEST: Clear. CARDIOVASCULAR: Regular rate and rhythm. ABDOMEN: Soft. SKIN: Dry. EXTREMITIES: No cyanosis or edema. NEUROLOGIC: Alert and oriented, moving all extremities symmetrically. PSYCHIATRIC: Appropriate mood and affect. RECTAL: Deferred until diagnostic exam. IMPRESSION: Personal history of polyps, history of prior low anterior resection, needs followup screening colonoscopy. Risk explained in detail including bleeding, infection, risk of bowel injury or perforation, risk of misdiagnosis or nondiagnosis, incomplete exam possibly requiring barium enema or other studies or procedure or referrals, risk of anesthesia or sedation, risk of bowel prep but not limited to. He understands. Will proceed with outpatient colonoscopy under MAC anesthesia.
[2024-01-01] MEDS: Lactated Ringers 1,000 ML IV SCH (09:19)
[2024-01-01 09:23] VITALS: RESP 16
[2024-01-01] MEDS ORDERED: Xylocaine-Mpf 2% 5 Ml Vial ONE (11:44)
[2024-01-01] MEDS ORDERED: DIPRIVAN 200 MG/20 ML IV ONE ×2 (11:44→12:02)
[2024-01-01] MEDS ORDERED: Versed 2 MG/2 ML Injection ONE (11:45)
[2024-01-01 12:37] VITALS: TEMP 98.3; O2SAT 98
[2024-01-01 12:49] VITALS: BP 152/96; PULSE 67
--- NOTE | 2024-01-02 21:50 | OP ---
SURGERY DATE/TIME: 01/01/2024 [id number] PREOPERATIVE DIAGNOSIS: History of polyps, needs followup screening colonoscopy. POSTOPERATIVE DIAGNOSIS: 1) Fair bowel prep. 2) Mild diverticulosis left colon. 3) Small early polyp versus hyperplastic lesion in descending colon and rectum. 4) Patent low anterior anastomosis, no evidence of any recurrence of any polypoid lesion. 5) ASA class 2. PROCEDURE: Colonoscopy to cecum with hot biopsy polypectomy of early polyp versus hyperplastic lesion in descending colon and biopsy polypectomy rectal polyp. SURGEON: Brock Heller MD ANESTHESIA: MAC. ESTIMATED BLOOD LOSS: Minimal. DESCRIPTION OF PROCEDURE AND FINDINGS: Patient was taken to the endoscopy room, MAC anesthesia induced. After official time-out and no disagreement with planned procedure, digital rectal exam did not reveal any rectal masses. He did have a little bit of loose perirectal and hemorrhoid area tissue there but no gross masses. Videocolonoscope was inserted and passed up through the slightly tortuous sigmoid, descending, transverse, and ascending colon around to cecum. Appendiceal orifice and valve were visualized, photo documented. Prep overall was only fair. A little bit of liquidy stool limiting exam for very small lesions. This was suction irrigated clear as possible. Photo documented the ileocecal valve and the cecum. Scope was withdrawn over the next 9 minutes or so. Had some mild diverticulosis in the left colon. Had a small early polyp versus hyperplastic lesion in the descending colon, was removed with hot biopsy forceps. Good hemostasis noted. Scope was pulled back to the rectum. Small early polyp versus hyperplastic lesion was also removed with hot biopsy polypectomy. The low anterior colorectal anastomotic site was patent. No signs of any recurrence of any polypoid lesions. Scope was withdrawn. Patient tolerated the procedure well. There were no immediate complications. There was no family at the time to discuss with.
== END 2024-01-01 13:15 | disposition home or self-care (01) ==
LOC: SDC 08:44
PROVIDERS: ATTEND Surgery
DX: Z12.11 Encounter for screening for malignant neoplasm of colon (principal); Z86.010 Personal history of colon polyps; K57.30 Diverticulosis of large intestine without perforation or abscess without bleeding; K63.5 Polyp of colon
CPT/HCPCS: J2250; J2704